=== PATIENT | female | born 1965 | race Caucasian/White ===

== ENCOUNTER 2019-07-15 12:21 | Outpatient (CLI) | payer OTHER, SELFPAY ==
--- NOTE | ~2019-07-15 | MMUS_ITS ---
EXAMINATION: MM diagnostic marah RT w iadee, US breast RT limited HISTORY: Follow-up right breast masses TECHNIQUE: Additional 3-D tomosynthesis images of the right breast were performed and synthetic 2-D i mages were generated. CAD analysis was submitted and interpreted. High resolution right breast ultras ound was performed. COMPARISON: Comparison to multiple prior studies sequentially, with oldest reviewed study dated 01/2015. FINDINGS: MAMMOGRAPHIC FINDINGS: The breasts are heterogenously dense, which may obscure small masses. There are no suspicious masses, calcifications or architectural distortion in the right breast to suggest malignancy. ULTRASOUND: Right breast ultrasound: At 9:00 near the nipple, there is a complicated cyst measuring 5.5 mm greatest dimension. At 11:00 ne ar the nipple there is a 4 mm cyst. At 12:00 near the nipple there is an oval circumscribed hypoechoi c mass measuring 7 x 3 x 3 mm with low-level internal echoes, parallel orientation, no internal vascu larity or posterior features. At 12:00 near the nipple there is a 4 mm complicated cyst. IMPRESSION: 1. Probable benign right breast masses. 2. Recommend 6 month follow-up bilateral mammogram and right breast ultrasound BI-RADS category 3, probably benign findings. Reviewed, dictated and finalized at location A. RNAL GRINDER TOOL IMPRESSION: 1. Probable benign right breast masses. 2. Recommend 6 month follow-up bilateral mammogram and right breast ultrasound BI-RADS category 3, probably benign findings.
== END 2019-07-15 12:22 | disposition home or self-care (01) ==
PROVIDERS: PCP Family Medicine; Visit Provider Obstetrics & Gynecology
DX: R92.8 Other abnormal and inconclusive findings on diagnostic imaging of breast (principal)
CPT/HCPCS: 76642; 77061; 77065; G0279

== ENCOUNTER 2020-01-31 11:05 | Outpatient (CLI) | payer OTHER, SELFPAY ==
--- NOTE | ~2020-01-31 | MMUS_ITS ---
EXAMINATION: MM diagnostic marah BI w aidee, US breast RT limited HISTORY: Six-month follow-up of probable benign right breast masses TECHNIQUE: ML, MLO, CC 3-D tomosynthesis images of the breasts were performed and synthetic 2-D image s were generated. CAD analysis was submitted and interpreted. High resolution repeat limited right br east ultrasound was performed. COMPARISON: 07/15/2019 diagnostic right digital mammogram and limited right breast ultrasound 12/24/2018 diagnostic right digital mammogram 12/16/2018 bilateral digital screening mammogram BREAST PARENCHYMAL COMPOSITION: The breasts are heterogeneously dense, which may obscure small masses . FINDINGS: MAMMOGRAPHIC FINDINGS: No interval suspicious mass or architectural distortion, malignant calcification, skin thickening or retraction or significant new or developing density of either breast is evident. Occasional punctate benign microcalcifications are noted. ULTRASOUND: Repeat upper outer quadrant right breast ultrasound imaging reveals a 5.7 x 3.9 mm cyst with through transmission posterior enhancement at 9:00 near the nipple and another 3 x 4.1 mm sonolucency consist ent with cyst at 11:00 near nipple. No suspicious solid lesion or shadowing is detected. IMPRESSION: 1. No mammographic evidence of malignancy 2. Routine mammographic screening is recommended. BI-RADS Category 2: Benign finding(s). Reviewed, dictated and finalized at location A. IMPRESSION: 1. No mammographic evidence of malignancy 2. Routine mammographic screening is recommended. BI-RADS Category 2: Benign finding(s).
== END 2020-01-31 11:06 | disposition home or self-care (01) ==
LOC: ANHIMG 11:07
PROVIDERS: PCP Family Medicine; Visit Provider Obstetrics & Gynecology
DX: R92.8 Other abnormal and inconclusive findings on diagnostic imaging of breast (principal)
CPT/HCPCS: 76642; 77062; 77066; G0279

== ENCOUNTER 2020-07-03 11:28 | Outpatient (CLI) | payer OTHER, SELFPAY ==
--- NOTE | ~2020-07-03 | MMUS_ITS ---
EXAMINATION: MM diagnostic marah LT w aidee, US breast LT limited HISTORY: Pain in the upper outer quadrant of the left breast TECHNIQUE: Craniocaudal, mediolateral, and mediolateral oblique 3-D tomosynthesis images of the left breast were performed and synthetic 2-D images were generated. CAD analysis was submitted and interpr eted. High resolution limited left breast ultrasound was performed. COMPARISON: 01/31/2020, 12/16/2018, 12/29/2017 BREAST PARENCHYMAL COMPOSITION: The breasts are heterogeneously dense, which may obscure small masses . FINDINGS: MAMMOGRAPHIC FINDINGS: There is an approximately 3.8 x 2.1 cm irregular equal density mass with indistinct and spiculated ma rgins in the posterior third of the upper outer quadrant of the breast at the 1:00 location 8 cm from the nipple. There is skin thickening of the left breast. Enlarged left axillary lymph nodes measure up to 1.3 cm. ULTRASOUND: There is an approximately 4.0 x 2.0 cm hypoechoic irregular mass with posterior acoustic shadowing at the 12:00 location 5 cm from the nipple. There are multiple enlarged left axillary lymph nodes, the largest of which measures 2.9 x 2.4 cm. IMPRESSION: 1. Suspicious left breast mass and left axillary lymphadenopathy. 2. Ultrasound-guided breast and axillary lymph node biopsy is recommended. BI-RADS category 5, highly suggestive of malignancy. Reviewed, dictated and finalized at location A. EX CLERK IMPRESSION: 1. Suspicious left breast mass and left axillary lymphadenopathy. 2. Ultrasound-guided breast and axillary lymph node biopsy is recommended. BI-RADS category 5, highly suggestive of malignancy.
== END 2020-07-03 11:29 | disposition home or self-care (01) ==
LOC: ANHIMG 11:32
PROVIDERS: PCP Family Medicine; Visit Provider Family Medicine
DX: N64.4 Mastodynia (principal); R92.8 Other abnormal and inconclusive findings on diagnostic imaging of breast
CPT/HCPCS: 76642; 77061; 77065; G0279

== ENCOUNTER 2020-07-13 10:35 | Outpatient (CLI) | payer OTHER, SELFPAY ==
--- NOTE | ~2020-07-13 | MMUS_ITS ---
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 Additional enlarged left axillary lymph nodes were visualized by ultrasound. Ultrasound-guided core biopsy is requested to evaluate for daniel gnancy. TECHNIQUE AND FINDINGS: The risks and potential benefits of the procedure were discussed with the patient, and written inform ed consent was obtained. After sterile preparation of the left breast and axilla, 1% lidocaine was u tilized for local anesthesia. 1% lidocaine with epinephrine was used for deep anesthesia. A 10G vacuum-assisted biopsy gun needle was advanced through to the outer edge of the region of inter est from a superior approach utilizing sonographic guidance. A total of 4 tissue core samples were o btained through the lesion. An Inrad tissue marker clip was then placed at the biopsy site. Hemostas is was achieved. A 14-gauge biopsy needle was used for left axillary lymph node biopsy. 4 specimens w ere obtained. The patient tolerated procedure well and there was no evidence of immediate complication. The patien t was given verbal instructions partly is from the department. Left breast mammograms to document ti ssue marker clip placement. The tissue samples were submitted to surgical pathology for histologic an alysis. IMPRESSION: 1. Successful ultrasound-guided vacuum-assisted biopsy of left breast mass and left axillary lymph n odes with tissue marker placement at the breast biopsy site. Please refer to pathology report for his tologic analysis. Reviewed, dictated and finalized at location A. HOUSE TRAFFIC SUPERVISOR IMPRESSION: 1. Successful ultrasound-guided vacuum-assisted biopsy of left breast mass and left axillary lymph nodes with tissue marker placement at the breast biopsy si te. Please refer to pathology report for histologic analysis. IMPRESSION: 1. Successful ultrasound-guided vacuum-assisted biopsy of left breast mass and left axillary lymph nodes with tissue marker placement at the breast biopsy si te. Please refer to pathology report for histologic analysis.
== END 2020-07-13 10:36 | disposition home or self-care (01) ==
PROVIDERS: PCP Family Medicine; Visit Provider Surgery
DX: R92.8 Other abnormal and inconclusive findings on diagnostic imaging of breast (principal); D05.12 Intraductal carcinoma in situ of left breast
CPT/HCPCS: 19083; 38505; 76942; 88305; 88342; A4648

== ENCOUNTER → 2020-07-19 02:41 | Outpatient (CLI) | payer OTHER, SELFPAY ==
[2020-07-19 17:20] LABS: SARS-CoV-2 RNA PCR Negative
== END ==
PROVIDERS: PCP Family Medicine; Visit Provider Surgery
DX: Z01.812 Encounter for preprocedural laboratory examination (principal); Z20.822 Contact with and (suspected) exposure to COVID-19
CPT/HCPCS: C9803; U0003; U0005

== ENCOUNTER 2020-07-20 00:58 | Day surgery (SDC) | payer OTHER, SELFPAY ==
[2020-07-18 16:48] VITALS: BMI 29.9
--- NOTE | 2020-07-19 13:24 | P.PNAN_ITS ---
Anes - Initial Pre Proc Eval Procedure: Operation Date: 07/20/20 14:00 Proposed Procedures p Insertion Carlos Cath - Luis Alvarez MD Date/Time: 07/19/20 13:24 Surgeon: Luis Alvarez MD Pre Op Diagnosis: Invasive Ductal CA Left Breast Patient Data Age: 55 Gender: F Height: 1.65 m Weight: 81.65 kg Allergies Allergy/AdvReac Type Severity Reaction Status Date / Time moxifloxacin Allergy Unknown Unknown Verified 07/20/20 13:01 Penicillins Allergy Unknown Swelling Verified 07/20/20 13:01 Home Medications Medication Instructions Recorded Confirmed Type fexofenadine [Alesha Allergy] 60 mg PO DAILY 07/18/20 07/20/20 History fluticasone propionate [Flonase] 1 spray INTRANASAL DAILY 07/18/20 07/20/20 History Patient hx anesthesia problems: none Family hx anesthesia problems: none PMFSH Past Medical History Medical History (Updated 07/19/20 @ 13:24 by Norris Chowdhury MD) BMI 30.0-30.9,adult 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 Questions were solicited and answers provided to the satisfaction of the patient/family/POA.
--- NOTE | ~2020-07-20 | XR_ITS ---
EXAMINATION: XR fl guide central line place EXAM DATE: 07/20/2020 15:04 INDICATION: Carlos catheter insertion. TECHNIQUE: Fluoroscopy used during XR fl guide central line place performed by Dr. Luis Alvarez MD. The DAP for this procedure was 0.0837 mGym2. FINDINGS: Right-sided portacatheter was placed, tip projects over cavoatrial junction. Correlate wi th procedure note. IMPRESSION: Fluoroscopy used during portacatheter insertion. Reviewed, dictated and finalized at location B. ING MACHINE OPERATOR
--- NOTE | ~2020-07-20 | XR_ITS ---
EXAMINATION: XR chest port-a-cath/central INDICATION: Port-A-Cath insertion TECHNIQUE: Portable AP chest at 1521 hours COMPARISON: None available FINDINGS: A right internal jugular Port-A-Cath has been inserted which ends with its tip in the dista l superior vena cava. There is no pleural effusion or pneumothorax. The lungs are free of acute opaci ties. The heart size is normal. IMPRESSION: 1. Right internal jugular Port-A-Cath ending with its tip in the distal superior vena cava. No acute cardiopulmonary abnormality. Reviewed, dictated and finalized at location A. NICAL SUPPORT ENGINEER IMPRESSION: 1. Right internal jugular Port-A-Cath ending with its tip in the distal superio r vena cava. No acute cardiopulmonary abnormality.
[2020-07-20 12:56] VITALS: BP 120/78; PULSE 84; RESP 20; TEMP 37.7; O2SAT 99
[2020-07-20] MEDS: ACETAMINOPHEN 500 MG TABLET 1000 MG PO (13:08)
[2020-07-20] MEDS: LACTATED RINGERS 1,000 ML 30 ML IV CONT (13:12)
--- NOTE | 2020-07-20 13:28 | SUR.PREOP ---
patient updated on potential surgery delay. pt denies any current needs.
--- NOTE | 2020-07-20 13:53 | WPDHPUPDATE1 ---
History and Physical Update Update Date/Time: 07/20/20 13:53 History and Physical has been reviewed, including an updated exam of the patient. There are NO changes in the patient's condition. Risks, benefits, and alternatives US guided placement of a Carlos-cath have been discussed and questions answered. Patient agrees to proceed with procedure.
[2020-07-20] MEDS: ceFAZolin 2 GM/D5W 50 ML 2 GM/50 ML BAG IVPB (14:30)
[2020-07-20] MEDS: HEPARIN SODIUM 5,000 UNITS/ML VIAL 5000 UNITS IRRIGATION (14:48)
[2020-07-20] MEDS: BUPIVACAINE/EPINEPHRINE 0.5% 30 ML VIAL 20 ML INFILTRATE (14:48)
--- NOTE | 2020-07-20 15:07 | PM.PROC ---
Procedure Note - Detailed Date of procedure: 07/20/20 Pre-op diagnosis: Invasive Ductal CA Left Breast Post-op diagnosis: same Procedure performed: Ultrasound-guided placement of Port-A-Cath Description of procedure: Patient was seen and marked in the pre-op area prior to coming to the OR. Patient was brought to the operating room. He was placed supine on the operating table and general IV sedation was induced. The nurse precipitation equipment tender provided oxygen and IV sedation. Patient's head was carefully turned to the left side while in the supine position and the patient's entire neck and anterior chest on both sides was prepped and draped in the usual sterile fashion. Following this the appropriate time-out was completed confirming procedure and patient. We confirmed that all the needed equipment was present in the room. Following this the ultrasound probe was draped into the field and using the probe we carefully identified the carotid artery and jugular vein on the right neck. I marked the skin directly over the Rt. internal jugular vein. We then saved an image of the Rt. neck vascular anatomy to the chart. Following this, using the continuous ultrasound guidance, a Cook needle was placed through the skin into this vein after making a 0.5 cm incision with an 11 blade knife. I then was able to draw back good dark blood. Once this was completed a guidewire using a J-tip was advanced through the needle and then the needle and the guidewire cover were withdrawn. C-arm fluoroscopy was used to confirm that the guidewire was nicely in the venous system. Once this was confirmed with the C - arm I preceded on by making the pocket for the port on the patient's anterior right chest approximately 3 centimeters below the clavicle overlying the chest wall. Local anesthetic was infiltrated into the skin where there was a transverse incision marked out. Incision was made and we made a pocket inferior to the incision with just a little dissection superior. The low-profile port was tried in the pocket and seemed to fit well. Following this the catheter which had been placed on a tunneling device was tunneled from the port site on the anterior right chest up to the right neck where a small incision had been made with an #11 blade knife. Then the catheter was pulled through so that we would have 15 centimeters to put into the central venous system once the dilation took place. Following this we placed the dilator and sheath over the guidewire in the jugular vein and carefully dilated the tract into the central venous system. The guidewire and dilator were then removed, carefully covering the end of the sheath to prevent air embolus. The end of the catheter which had been cut off straight across and the tip checked was then inserted into the sheath and into the neck. I then carefully pulled the 2 arms of the tear-away sheath away as the safety admin assistant held the catheter in position with a DeBakey forceps. Following this we checked the position of the catheter with C-arm fluoroscopy confirming that the tip seemed to be in the distal superior vena cava near the junction with the right atrium. I felt that it was in good position and so the rest of the catheter was pulled down toward the feet into the port site. We then measured to the appropriate position to cut the catheter to attach it to the port stem. Then the connector sealing device for the catheter port was placed onto the catheter and then the catheter cut to the appropriate length and inserted onto the stem of the port. Then the connector was advanced onto the stem over the catheter sealing it to the port. A single 3- 0 Prolene suture was also used during this to suture the connector to the port and to the underlying musculature. Following this at one other site the port was sutured to the underlying musculature with the 3-0 Proline. Both prior to connecting the catheter to the port and then using a straight Baires needle following this
[2020-07-20 15:11] VITALS: BP 121/65; PULSE 84; RESP 15; O2SAT 95
[2020-07-20 15:35] VITALS: BP 124/70; PULSE 72; RESP 20
--- NOTE | 2020-07-20 15:40 | SUR.PHASEII ---
1540 - dr. doe in room talking with pt
[2020-07-20 16:05] VITALS: BP 105/66; PULSE 65; RESP 20
[2020-07-20 16:35] VITALS: BP 115/65; PULSE 65; RESP 20
== END 2020-07-20 16:45 | disposition home or self-care (01) ==
PROVIDERS: PCP Family Medicine; Visit Provider Surgery
PROC: (CPT 36561; principal; 2020-07-20 14:00)
DX: C50.912 Malignant neoplasm of unspecified site of left female breast (principal); C77.3 Secondary and unspecified malignant neoplasm of axilla and upper limb lymph nodes; E66.9 Obesity, unspecified; Z68.29 Body mass index [BMI] 29.0-29.9, adult
CPT/HCPCS: 36561; 76937; 77001; A9270; C1788; J0690; J1200; J1644; J2250; J2405; J2704; J3010; J7030; J7120

== ENCOUNTER 2021-10-05 00:52 | Day surgery (SDC) | payer OTHER, SELFPAY ==
[2021-09-21 15:31] VITALS: BMI 32.1
[2021-10-05 07:45] VITALS: BP 118/86; PULSE 92; RESP 16; TEMP 36.3; O2SAT 100; BMI 31.6
--- NOTE | 2021-10-05 08:03 | PM.IMHP ---
H&P: HPI History of Present Illness Date/Time: 10/05/21 08:03 Chief Complaint: Neoplasia screening. Narrative: This is a 56-year-old white female patient presents for screening colonoscopy. Patient has a history of colon polyps 5 years ago. Patient presents today for follow-up colonoscopy. Patient reports that her current weight appetite and bowel movements are normal. She denies abdominal pain. She has had no bleeding. Family history is noncontributory. Patient does have a past history of left breast cancer. Review of Systems Review of Systems: Review of systems noncontributory. 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 Gender identity (if verbalized by the patient): Female Spiritual care concerns: No Meds Home Medications and Allergies Home Medications Medication Instructions Recorded Confirmed Type fluticasone propionate 50 1 spray intranasal DAILY 07/18/20 10/05/21 History mcg/actuation nasal spray,suspension montelukast 10 mg tablet 10 mg PO QPM #90 tabs 08/29/21 10/05/21 Rx duloxetine 30 mg capsule,delayed 30 mg PO DAILY 09/04/21 10/05/21 History release fexofenadine 180 mg tablet 180 mg PO DAILY 09/04/21 10/05/21 History (Allergy Relief (fexofenadine)) Allergies Allergy/AdvReac Type Severity Reaction Status Date / Time Penicillins Allergy Unknown Swelling Verified 10/05/21 07:49 Vital Signs Vital Signs - 24 hr 10/05/21 07:45 Temperature 97.4 F L Pulse Rate 92 Respiratory Rate 16 Blood Pressure 118/86 Pulse Oximetry 100 Oxygen Delivery Room Air Exam Narrative: Physical exam reveals patient to be alert. Vital signs stable. HEENT exam is unremarkable. Patient is anicteric. Lungs are clear to auscultation and percussion. Lungs are clear to auscultation and percussion. Heart is without murmur or extra sounds. Abdominal exam bowel sounds are present soft nontender with no organomegaly. Digital external rectal exam is normal. Assessment and Plan Assessment and plan (1) History of colon polyps: Code(s): Z86.010 - Personal history of colonic polyps Status: Acute Assessment and Plan: Patient has a prior history of colon polyps 5 years ago. Patient presents today for neoplasia screening colonoscopy.
[2021-10-05] MEDS: LACTATED RINGERS 1,000 ML 150 ML IV CONT (08:07)
--- NOTE | 2021-10-05 08:33 | WPDANESEPPF ---
Anes - Initial Pre Proc Eval Procedure: Operation Date: 10/05/21 09:00 Proposed Procedures p Screening Colonoscopy - Syd Morrow MD Date/Time: 10/05/21 08:33 Surgeon: Syd Morrow MD Pre Op Diagnosis: hx of colon polyps Patient Data Age: 56 Gender: F Height: 1.65 m Weight: 86.4 kg Last Vital Signs Temp 97.4 F L 10/05/21 07:45 Pulse 92 10/05/21 07:45 Resp 16 10/05/21 07:45 BP 118/86 10/05/21 07:45 Pulse Ox 100 10/05/21 07:45 O2 Del Method Room Air 10/05/21 07:45 Allergies Allergy/AdvReac Type Severity Reaction Status Date / Time Penicillins Allergy Unknown Swelling Verified 10/05/21 07:49 Home Medications Medication Instructions Recorded Confirmed Type fluticasone propionate 50 1 spray intranasal DAILY 07/18/20 10/05/21 History mcg/actuation nasal spray,suspension montelukast 10 mg tablet 10 mg PO QPM #90 tabs 08/29/21 10/05/21 Rx duloxetine 30 mg capsule,delayed 30 mg PO DAILY 09/04/21 10/05/21 History release fexofenadine 180 mg tablet 180 mg PO DAILY 09/04/21 10/05/21 History (Allergy Relief (fexofenadine)) Patient hx anesthesia problems: none Family hx anesthesia problems: none Results Review: All pre-operative results and documents have been reviewed as part of the pre-operative evaluation. 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 Informed Consent: The patient's anesthetic plan and its attendant risks and benefits were discussed with the patient/family/POA. Questions were solicited and answers provided to the satisfaction of the patient/family/POA.
[2021-10-05 09:00] VITALS: BP 119/71; PULSE 81; RESP 19; O2SAT 96
[2021-10-05 09:10] VITALS: BP 107/64; PULSE 73; RESP 15; O2SAT 99
[2021-10-05 09:20] VITALS: BP 118/71; PULSE 76; RESP 15; O2SAT 99
== END 2021-10-05 09:29 | disposition home or self-care (01) ==
PROVIDERS: PCP Family Medicine; Visit Provider Internal Medicine Gastroenterology
PROC: 0DJD8ZZ Inspection of Lower Intestinal Tract, Via Natural or Artificial Opening Endoscopic (ICD-10-PCS; CPT 45378; principal; 2021-10-05 09:00)
DX: Z12.11 Encounter for screening for malignant neoplasm of colon (principal); Z86.010 Personal history of colon polyps; K57.30 Diverticulosis of large intestine without perforation or abscess without bleeding; K64.8 Other hemorrhoids; C77.3 Secondary and unspecified malignant neoplasm of axilla and upper limb lymph nodes; Z85.3 Personal history of malignant neoplasm of breast; R73.03 Prediabetes; E05.90 Thyrotoxicosis, unspecified without thyrotoxic crisis or storm
CPT/HCPCS: 45378; J2704; J7120

== ENCOUNTER 2021-12-03 14:20 | Outpatient (CLI) | payer OTHER, SELFPAY ==
--- NOTE | ~2021-12-03 | XR_ITS ---
EXAM: XR lumbar spine 2-3V DATE: 12/03/2021 14:37 HISTORY: M54.32 - Sciatica, left side . COMPARISON: None available. FINDINGS: 5 nonrib-bearing lumbar-type vertebral bodies. Pedicles intact. Normal vertebral body alig nment. Vertebral body heights preserved. Multilevel mild disc space narrowing and marginal osteophyto sis. Normal facets and posterior elements. No fracture or dislocation. IMPRESSION: Multilevel mild degenerative disc disease. Reviewed, dictated and finalized at location K.
== END 2021-12-03 14:21 | disposition home or self-care (01) ==
LOC: ANHIMG 14:24
PROVIDERS: PCP Family Medicine; Visit Provider Family Medicine
DX: M54.32 Sciatica, left side (principal); M51.36 Other intervertebral disc degeneration, lumbar region
CPT/HCPCS: 72100

== ENCOUNTER 2022-01-01 15:15 | Outpatient (CLI) | payer OTHER, SELFPAY ==
--- NOTE | ~2022-01-01 | XR_ITS ---
XR chest 2V 01/01/2022 15:39 Indication: Shortness of breath for 2 weeks Procedure: 2 view chest Comparison: 07/20/2020 Findings: Portacatheter tip in the SVC. Heart size normal. Mild pectus excavatum. No focal air space disease, pulmonary edema, pleural effusion or suspected pneumothorax. Impression: 1: No acute cardiopulmonary disease. Reviewed, dictated and finalized at location A. Impression: 1: No acute cardiopulmonary disease.
[2022-01-01 16:33] LABS: Basophils Percent Auto 0.6 % (0.2-1.2); Eosinophils Absolute Auto 0.1 K/mm3 (0-0.3); Eosinophils Percent Auto 1.7 % (0-4.4); Hematocrit 43.6 % (37.0-47.0); Hemoglobin 13.8 g/dL (12.0-15.0); Immature Granulocyte Percent A 1.9 % (0-0.5); Immature Platelet Fraction Pct 3.8 % (0.9-11.2); Lymphocytes Absolute Auto 0.73 K/mm3 (0.9-3.2); Lymphocytes Percent Auto 13.8 % (18.3-44.2); Mean Corpuscular HGB Conc 31.7 g/dl (32-36); Mean Corpuscular Hemoglobin 30.8 pg (26-34); Mean Corpuscular Volume 97.3 fl (80-100); Mean Platelet Volume 10.2 fl (7.4-10.4); Monocytes Absolute Auto 0.6 K/mm3 (0.1-0.6); Monocytes Percent Auto 11.7 % (2.6-8.5); Neutrophils Absolute Auto 3.7 K/mm3 (1.3-6.7); Neutrophils Percent Auto 70.3 % (45.5-73.1); Platelet Count Result 133 k/mm3 (150-375); Red Blood Count 4.48 M/mm3 (4.2-5.4); Red Cell Distribution Width 15.9 % (11.5-14.5); White Blood Count 5.3 K/mm3 (4.5-10.0)
[2022-01-01 16:43] LABS: Alanine Aminotransferase 88 U/L (6-35); Albumin Level 4.1 g/dL (3.5-5.1); Alkaline Phosphatase 212 U/L (38-126); Anion Gap 10 mmol/L (8-16); Aspartate Amino Transferase 126 U/L (14-36); Bilirubin,Total 0.9 mg/dL (0.2-1.3); Blood Urea Nitrogen 12 mg/dL (7-17); Calcium 9.5 mg/dL (8.4-10.2); Carbon Dioxide 25 mmol/L (22-30); Chloride 104 mmol/L (98-107); Estimated Glomerular Filt Rate > 60; Glucose 142 mg/dL (65-110); Potassium 4.5 mmol/L (3.4-5.0); Sodium 139 mmol/L (137-145)
== END 2022-01-01 15:16 | disposition home or self-care (01) ==
PROVIDERS: PCP Family Medicine; Visit Provider Family Medicine
DX: R06.09 Other forms of dyspnea (principal); I10 Essential (primary) hypertension
CPT/HCPCS: 36415; 71046; 80053; 85025; 85055

== ENCOUNTER 2022-01-02 11:55 | Inpatient (IN) | payer OTHER, SELFPAY ==
[2022-01-02] VITALS (14 sets, daily range): BP systolic 115–153; BP diastolic 68–98; PULSE 83–114; RESP 14–22; TEMP 36.2–37.3; O2SAT 88–100; BMI 31.6
--- NOTE | ~2022-01-02 | US_ITS ---
EXAMINATION: US venous doppler [facility] DATE: 01/03/2022 11:51 INDICATION: Shortness of breath TECHNIQUE: Sen scale images without and with compression and Doppler images of the bilateral lower e xtremity veins were obtained. COMPARISON: None FINDINGS: The right common femoral vein, profunda femoral vein, femoral vein, popliteal vein, peroneal trunk, p osterior tibial veins, and greater saphenous vein are patent. The left common femoral vein, profunda femoral vein, femoral vein, popliteal vein, peroneal trunk, po sterior tibial veins, and greater saphenous vein are patent. IMPRESSION: 1. Patent bilateral lower extremity veins. No evidence of deep venous thrombosis. Reviewed, dictated and finalized at location B. IMPRESSION: 1. Patent bilateral lower extremity veins. No evidence of deep venous thrombosi s.
--- NOTE | ~2022-01-02 | XR_ITS ---
EXAMINATION: XR chest 2V DATE: 01/02/2022 12:22 INDICATION: Chest pain TECHNIQUE: PA and lateral views of the chest are obtained. COMPARISON: 01/01/2022 FINDINGS: A right internal jugular Port-A-Cath ends with its tip in the distal superior vena cava. Th e lungs are free of acute opacities. No pleural effusion or pneumothorax. The cardiomediastinal silho uette is normal. There is mild thoracic spondylosis. There are changes of left mastectomy. IMPRESSION: 1. No acute cardiopulmonary abnormality. Reviewed, dictated and finalized at location B.
--- NOTE | ~2022-01-02 | CT_ITS ---
EXAMINATION: CTA chest PE protocol DATE: 01/02/2022 13:38 INDICATION: Chest pain and shortness of breath, history of breast cancer TECHNIQUE: Computed tomography angiography (CTA) of the chest was performed with 100 mL Omnipaque-350 intravenous contrast timed to evaluate the pulmonary arteries. Coronal maximum intensity projection 3D-reconstructions were created by the technologist. The dose-length product (DLP) was 329.08 mGy-cm. Automated exposure control and iterative reconstruction technique were employed. COMPARISON: None. FINDINGS: The pulmonary arteries are well-opacified. No pulmonary embolism is identified. There is pa tchy atelectasis of the lungs. No pleural effusion or pneumothorax. Changes of left mastectomy are no collette. No pathologically enlarged thoracic lymph nodes are identified. The heart size is normal. There appears to be mild wall thickening of the gallbladder. There is mild thoracic spondylosis. IMPRESSION: 1. No pulmonary embolus. 2. Mild atelectasis. 3. Possible wall thickening of the gallbladder. Correlate for right upper quadrant tenderness. Reviewed, dictated and finalized at location B. IMPRESSION: 1. No pulmonary embolus. 2. Mild atelectasis. 3. Possible wall thickening of the gallbladder. Correlate for right upper quadr ant tenderness.
--- NOTE | ~2022-01-02 | XR_ITS ---
EXAMINATION: XR chest 1V INDICATION: Shortness of breath TECHNIQUE: AP view of the chest is obtained. COMPARISON: 01/02/2022 FINDINGS: A right internal jugular Port-A-Cath ends with its tip in the distal superior vena cava. Th e lungs are free of acute opacities. The cardiomediastinal silhouette is normal. No pleural effusion or pneumothorax. Changes of left mastectomy are noted. IMPRESSION: 1. No Reviewed, dictated and finalized at location B. IMPRESSION: 1. No
--- NOTE | ~2022-01-02 | US_ITS ---
EXAMINATION: US biopsy liver DATE: 01/04/2022 10:24 INDICATION: Liver mass. TECHNIQUE: The procedure including the risks, benefits, and alternatives was discussed with the patie nt. Risks discussed included bleeding and infection. The patient understood the risks and agreed to p roceed. The skin overlying the liver was prepped and draped in usual sterile fashion. Anesthetic was administered with 1% lidocaine subcutaneously. An 18 gauge core biopsy needle was then used to obta in 3 core biopsy specimens under continuous sonographic guidance. The entry site was cleaned and dres sed. There were no immediate complications. FINDINGS: Ultrasound images demonstrate the needle in a 3.2 cm hypoechoic mass in right hepatic lobe. IMPRESSION: 1. Ultrasound-guided core needle biopsy of a liver mass. Reviewed, dictated and finalized at location A.
--- NOTE | ~2022-01-02 | CT_ITS ---
EXAMINATION: CTA chest PE protocol DATE: 01/05/2022 16:55 INDICATION: shortness of breath TECHNIQUE: Computed tomography angiography (CTA) of the chest was performed with 100 mL Omnipaque-350 intravenous contrast timed to evaluate the pulmonary arteries. Coronal maximum intensity projection 3D-reconstructions were created by the technologist. The dose-length product (DLP) was 434.64 mGy-cm. Automated exposure control and iterative reconstruction technique were employed. COMPARISON: 01/02/2022. FINDINGS: Lung parenchyma and airways: Mild left anterior peripheral scarring and bibasilar atelectasis. Pleura: Unremarkable. Thoracic inlet, axillae and chest wall: Left mastectomy. Likely postsurgical change in the left axill a. Thoracic aorta: Normal. Mediastinum: Small hiatal hernia. Heart and pericardium: Mild cardiomegaly. Coronary artery calcifications: Absent. Upper abdomen: 11 mm splenic artery aneurysm. Possible persistent thickening. Bones: No acute osseous finding. Pulmonary arteries: Study quality: Adequate. No pulmonary emboli detected. IMPRESSION: No CT evidence of acute pulmonary embolus. Possible persistent gallbladder wall thickening, correlate for right upper quadrant tenderness. 11 mm splenic artery aneurysm. Reviewed, dictated and finalized at location K. IMPRESSION: No CT evidence of acute pulmonary embolus. Possible persistent gallbladder wall thickening, correlate for right upper quadrant tenderness. 11 mm splenic arter y aneurysm.
--- NOTE | ~2022-01-02 | CT_ITS ---
EXAMINATION:CT chest high resolution wo nv DATE: 01/07/2022 10:09 INDICATION: Shortness of breath. TECHNIQUE: Computed tomography (CT) of the chest was performed without intravenous contrast. Automate d exposure control and iterative reconstruction technique were employed. The dose-length product (DLP ) was 219.07 mGy-cm. COMPARISON: Chest CT 01/05/2022 FINDINGS: There are peripheral airspace and groundglass opacities in anterior left lung, consistent w ith radiation fibrosis. There is mild atelectasis bilaterally. There is smooth septal thickening in t he lungs, consistent mild pulmonary edema. No pleural effusion. There is a right internal jugular por t with tip at superior cavoatrial junction. The heart size is normal. No pericardial effusion. There are changes of left mastectomy. There are numerous masses in the liver. There is mild thoracic spondy losis. IMPRESSION: 1. Mild pulmonary edema. 2. 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 2. Liver masses, consistent with metastatic disease. Reviewed, dictated and finalized at location A.
--- NOTE | ~2022-01-02 | US_ITS ---
EXAMINATION: US abdomen limited DATE: 01/03/2022 11:53 INDICATION: Right upper quadrant pain TECHNIQUE: Multiple grayscale and Doppler ultrasound images of the abdomen were obtained. COMPARISON: CT from yesterday FINDINGS: The pancreas is not well demonstrated. There are multiple hypoechoic masses of the liver, t he largest of which measures up to 8.5 cm. No surface nodularity. Normal hepatopetal flow in the main portal vein. The gallbladder is normal with no abnormal wall thickening, pericholecystic fluid or st ones. The dilated common bile duct measures 9 mm. There was no sonographic Borja sign. IMPRESSION: 1. Multiple liver masses which could reflect metastatic disease given history of breast cancer. Furth er evaluation by MRI without and with contrast is recommended. 2. Dilated common bile duct of unclear etiology. Finding can be simultaneously evaluated by MRI. Reviewed, dictated and finalized at location B. IMPRESSION: 1. Multiple liver masses which could reflect metastatic disease given history o f breast cancer. Further evaluation by MRI without and with contrast is recomme nded. 2. Dilated common bile duct of unclear etiology. Finding can be simultaneously evaluated by MRI.
--- NOTE | ~2022-01-02 | MR_ITS ---
EXAMINATION: MR MRCP wo/w con/w 3D wo ind DATE: 01/04/2022 07:20 INDICATION: Liver masses. TECHNIQUE: Magnetic resonance imaging (MRI) of the abdomen was performed without intravenous contrast . Sequences included coronal T2-weighted FS FSE, coronal T2-weighted FSE, axial T1-weighted LAVA, cor onal FS FIESTA, axial dual-echo T1-weighted SPGR, coronal lava-FLEX, sagittal T2-weighted FSE, axial T2-weighted FSE, and axial DWI. Thick-slab T2-weighted FSE images were obtained for magnetic resonanc e cholangiopancreatography (MRCP). Maximum intensity projection 3-D reconstructions of the volumetric data were created by the technologist. Postcontrast sequences included coronal LAVA-flex and time co urse of axial T1-weighted LAVA. COMPARISON: Abdomen ultrasound 01/03/2022 FINDINGS: ABDOMEN MRI: There are changes of left mastectomy. There are greater than 10 masses in the liver, man y which are confluent. The largest mass measures 11.7 cm in right hepatic lobe. The gallbladder is no rmal in size. The spleen, pancreas, adrenal glands, and right kidney are normal. There is a 5 mm cyst in left kidney. There are no dilated loops of bowel. There is mild periportal lymphadenopathy. There is no free intraperitoneal fluid. There is heterogeneous bone marrow signal intensity and enhancemen t involving L2 vertebral body. ABDOMEN MRCP: The common duct is normal and measures 4 mm. IMPRESSION: 1. Liver masses and L2 vertebral body lesion, consistent with metastatic disease. The liver masses wo uld be amenable to ultrasound-guided core needle biopsy. Reviewed, dictated and finalized at location A. IMPRESSION: 1. Liver masses and L2 vertebral body lesion, consistent with metastatic diseas e. The liver masses would be amenable to ultrasound-guided core needle biopsy.
--- NOTE | 2022-01-02 11:55 | ECG_ITS ---
Measurements Intervals Edwards Rate: 91 P: -1 OK: 137 QRS: 0 QRSD: 76 T: 14 QT: 353 QTc: 435 Interpretive Statements SINUS RHYTHM NORMAL ECG NO PREVIOUS ECG AVAILABLE FOR COMPARISON Electronically Signed On 01-02-2022 16:12:10 CDT by Luis Antonio Caballero M.D.
--- NOTE | 2022-01-02 12:18 | ED.CHESTPAIN ---
HPI - Chest Pain General Chief Complaint: Chest Pain Stated Complaint: chest pain Time Seen by Provider: 01/02/22 12:09 Source: patient and family Mode of arrival: ambulatory Limitations: no limitations History of Present Illness HPI narrative: 56 years old white female presents with increased shortness of breath over the last 2 days. Patient reports shortness of breath for over 2 weeks, got worse over the last 2 days. Associated with chest pain that radiated to the neck and through the back. She reported history of recent travel, 14-hour drive 5 days ago, and history of left breast cancer, treated and no remission years ago History of COVID infection November 23, 2021. Patient is fully vaccinated and boosted once for COVID infection Oxygenation on room air was 88 on arrival to the emergency room Related Data Home Medications Medication Instructions Recorded Confirmed duloxetine 30 mg capsule,delayed 30 mg PO DAILY 09/04/21 12/03/21 release fexofenadine 180 mg tablet 180 mg PO DAILY PRN 11/05/21 12/03/21 (Allergy Relief (fexofenadine)) fluticasone propionate 50 1 spray intranasal DAILY PRN 11/05/21 12/03/21 mcg/actuation nasal spray,suspension montelukast 10 mg tablet 10 mg PO QPM PRN 11/05/21 12/03/21 Allergies Allergy/AdvReac Type Severity Reaction Status Date / Time Penicillins Allergy Unknown Swelling Verified 01/02/22 12:30 Review of Systems Review of Systems: All systems reviewed & are unremarkable except as noted in HPI and below PMFSH Past Medical History Medical History BMI 30.0-30.9,adult 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 Other Hypertension Social History Social History Smoking status: Never smoker Second hand tobacco smoke exposure: No Alcohol intake: current Alcohol use details: a few drinks per month Substance use: never Substance use type: does not use Additional occupation/education comments: [employer] Gender identity (if verbalized by the patient): Female Sexual Orientation (if Verbalized by the Patient): Straight or Heterosexual Spiritual care concerns: No Agree to blood products: Yes Exam Narrative: General appearance: Well-developed, well-nourished Skin: Normal color Head: Normocephalic, nontraumatic Eyes: Clear conjunctiva ENT: Oropharynx normal, ears normal, nose normal Neck: Supple, nontender Chest and respiratory: Airway patent, no respiratory distress, no accessory muscle use Heart: Regular rate/rhythm Abdomen: Soft, nontender, no organomegaly, quiet bowel sounds Vascular: Normal peripheral pulses, normal capillary refill. Musculoskeletal: Normal range of motion, nontender back Neurologic: Alert and oriented ?3, ROPING TENDER is normal as tested, no gross motor deficit Course Vital Signs Vital signs: Vital Signs Temperature 37.2
[2022-01-02 12:24] LABS: Basophils Percent Auto 0.5 % (0.2-1.2); Eosinophils Absolute Auto 0.1 K/mm3 (0-0.3); Eosinophils Percent Auto 1.6 % (0-4.4); Hematocrit 45.7 % (37.0-47.0); Hemoglobin 14.8 g/dL (12.0-15.0); Immature Granulocyte Absolute 0.13 K/mm3 (0.00-0.031); Immature Granulocyte Percent A 2.1 % (0-0.5); Immature Platelet Fraction Pct 4.5 % (0.9-11.2); Lymphocytes Absolute Auto 0.93 K/mm3 (0.9-3.2); Mean Corpuscular HGB Conc 32.4 g/dl (32-36); Mean Corpuscular Hemoglobin 31.2 pg (26-34); Mean Corpuscular Volume 96.2 fl (80-100); Mean Platelet Volume 10.2 fl (7.4-10.4); Monocytes Absolute Auto 0.7 K/mm3 (0.1-0.6); Monocytes Percent Auto 10.7 % (2.6-8.5); Neutrophils Absolute Auto 4.3 K/mm3 (1.3-6.7); Neutrophils Percent Auto 70.1 % (45.5-73.1); Platelet Count Result 130 k/mm3 (150-375); Red Blood Count 4.75 M/mm3 (4.2-5.4); Red Cell Distribution Width 16.5 % (11.5-14.5); White Blood Count 6.2 K/mm3 (4.5-10.0)
[2022-01-02 12:28] LABS: Alanine Aminotransferase 100 U/L (6-35); Albumin Level 4.5 g/dL (3.5-5.1); Alkaline Phosphatase 242 U/L (38-126); Anion Gap 11 mmol/L (8-16); Aspartate Amino Transferase 144 U/L (14-36); Bilirubin,Total 0.9 mg/dL (0.2-1.3); Blood Urea Nitrogen 11 mg/dL (7-17); Calcium 9.5 mg/dL (8.4-10.2); Carbon Dioxide 25 mmol/L (22-30); Chloride 104 mmol/L (98-107); Estimated Glomerular Filt Rate > 60; Glucose 129 mg/dL (65-110); Lipase 94 U/L (23-300); Potassium 3.6 mmol/L (3.4-5.0); Sodium 140 mmol/L (137-145)
[2022-01-02 12:29] LABS: INR 1.1; Prothrombin Time 13.8 Seconds (11.1-14.7)
[2022-01-02 12:30] LABS: Partial Thromboplastin Time 30.8 SECONDS (22.3-36.8)
[2022-01-02 12:39] LABS: Troponin I < 0.012 ng/mL (0.000-0.034)
--- NOTE | 2022-01-02 12:39 | PC.NURSE ---
pt unable to provide urine sample at this time and is declining straight cath.
[2022-01-02 12:52] LABS: NT Pro B Type Natriuretic Pept 225 pg/mL (5-100)
[2022-01-02 12:53] LABS: D Dimer 2.15 ug/mL (<0.48)
[2022-01-02 13:00] LABS: Alveolar/Arterial O2 Gradient 73.1 mmHg; Base Excess ABG 0.3 mEq/l (+/-2.0); Fractional Inspired Oxygen 30 %; Oxygen Content ABG 19.7 %vol (16.0-22.0); Oxygen Saturation ABG 98.1 % (95.0-100.0); Oxyhemoglobin 96.7 % THb (90.0-100.0); PCO2 ABG 31.9 mmHg (35.0-45.0); PO2 ABG 103.3 mmHg (80.0-100.0); PO2 FiO2 Ratio Arterial Blood 3.44 %; Total Hemoglobin 14.4 g/dL (12.0-18.0); pH ABG 7.476 (7.350-7.450)
[2022-01-02 13:02] LABS: Site Drawn RIGHT BRACHIAL
[2022-01-02 13:03] LABS: Device NASAL CANNULA; Liters per Minute 2.5 LPM
[2022-01-02 13:18] LABS: SARS-CoV-2 RNA PCR Positive
[2022-01-02 13:30] LABS: Appearance Urine Clear (Clear); Bilirubin Urine Negative (Negative); Color Urine Yellow (Yellow); Glucose Urine UA Negative (Negative); Ketones Urine Negative (Negative); Leukocyte Esterase Ur Negative LEU/UL (Negative); Nitrate Urine Negative (Negative); Protein Urine Negative (Negative); Specific Grav Ur 1.025 (1.001-1.035); Urobilinogen Urine 0.2 mg/dL (<2.0); pH Urine 5.5 (5.0-9.0)
[2022-01-02 13:35] LABS: Bacteria Urine 1+ /hpf; Mucus Urine Rare /lpf; RBC Urine 0-2 /hpf (0-2); Squamous Epithelial Cell Urine Occasional /hpf (Few); WBC Urine 0-3 /hpf
[2022-01-02 13:37] LABS: Add Urine Microscopic? YES; Blood Urine Trace-Intact (Negative)
[2022-01-02] MEDS: ENOXAPARIN 80 MG/0.8 ML SYRINGE 90 MG SUB-Q (13:45)
--- NOTE | 2022-01-02 15:14 | PM.IMHP ---
H&P: HPI History of Present Illness Date/Time: 01/02/22 15:14 Chief Complaint: Chest pain Narrative: patient is a 56-year-old female with a past medical history of breast cancer, allergies who presented to the ED with complaints of increased shortness of breath over the last 2 days. Patient stated that recently she had went to for a with her her grandkids between the and the . She stated prior before leaving she has a sciatica problem and had talked to her doctor who told her to take Aleve to try to relieve the pain. She said she was taking with meals a.m. and p.m. and that is when her shortness of breath really started. She stated the shortness of breath has been worse over the last couple days however she has had it for while but can not give a good timeline of when it all started. She denies having any cough or wheezes. When you ask her to describe her sciatic pain she says that it has pain that starts from the left and now she has a new pain comes from the right goes up to her neck. The pain on the right does started the level of the gallbladder. She also states that she feels like her shortness of breath is from COVID however she was positive in November which her new positive makes it look more rebound. She does not appear to have a new COVID infection. She also stated that she has pain with taking a deep breath. She has also gained weight roughly starting December of last year she has gained roughly 20 lb. She does have bad seasonal allergies which she takes singular, Alesha, Flonase during the spring and fall to get through that. Her last meal was wall folds, milk, coffee. Her last radiation treatment was June 15 of this year her last chemo treatment was sometime in December. As I was talking to her she stated that her pain starts under her right rib and does hurt when she takes a deep breath in. It is noted that her D-dimer is elevated however CTA was negative for PE. Her AST and ALT are also 144/100 alk-phos is elevated 242. BNP is elevated to 225. CTA shows no pulmonary embolus, mild atelectasis and possible wall thickening of the gallbladder. 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 Environmental allergies History of colon polyps Invasive ductal carcinoma of left breast Pre-diabetes Subclinical hyperthyroidism Surgical History Surgical History H/O laparoscopy (~1989) H/O mastectomy (~02/2021) History of (~2000) x3 1990, 1993, 2000 History of partial hysterectomy (~2004) Family History Family History Grandparent Family history of cardiovascular disease Carcinoma of colon Mother Family history of cardiovascular disease Family history of arthritis Family history of chronic obstructive pulmonary disease COPD (chronic obstructive pulmonary disease) Heart disease Acute myocardial infarction Father No problems noted. Other No problems noted. Sibling Hypertension brother Other Pancreatic cancer 2 aunts Social History Social History Social History: patient lives at home with her Mickey who will be her surrogate if needed. She has 3 kids and 3 grandchildren. They do have a dog. She wants to be a full code and she will have blood if needed Smoking status: Never smoker Second hand tobacco smoke exposure: No Alcohol intake: current Alcohol use details: 1 drink per month Substance use: never Substance use type: does not use Living arrangements
[2022-01-02 16:07] LABS: Troponin I 0.016 ng/mL (0.000-0.034)
[2022-01-02] MEDS: FUROSEMIDE INJ 40 MG/4 ML VIAL 20 MG IV PUSH (16:37)
[2022-01-02] MEDS: HYDROcodone/acetaminophen (*CRX) 5-325 MG TABLET 1 TAB PO (17:37)
--- NOTE | 2022-01-02 17:44 | ADMGEN ---
This patient, Anais Aguilar, was admitted to 3 [facility] Surg Room 320-01 at 1645. Patient/family oriented to hospital policies and general routines including ID bracelet, bed and alarms, visiting hours, pain management, procedures, bathroom and other care routines, personal items, smoking policy, room service/diet, and visiting hours. Information on how to activate the Rapid Response Team has been discussed. Patient/Family are encouraged to report perceived risks to care and to ask questions if they do not understand what they are told or what they should do.
[2022-01-02] MEDS: ACETAMINOPHEN 325 MG TABLET 650 MG PO (20:20)
[2022-01-02] MEDS: MORPHINE SULFATE (*CRX) 2 MG/ML INJ IV PUSH (20:20)
[2022-01-02 22:11] LABS: Troponin I 0.027 ng/mL (0.000-0.034)
[2022-01-03] VITALS (7 sets, daily range): BP systolic 122–143; BP diastolic 68–86; PULSE 95–113; RESP 18; TEMP 36–37.2; O2SAT 90–98
--- NOTE | 2022-01-03 | ECHO_ITS ---
Patient Info Name: Anais Aguilar Age: 56 years : 1965 Gender: Female Ht: 65 in Wt: 190 lbs BSA: 2.02 m2 HR: 99 bpm BP: 122 / 68 mmHg Exam Date: 01/03/2022 10:10 AM Exam Location: [facility] Patient Status: Inpatient Admit Date: 01/02/2022 Staff Ordering Physician: David Baires Coding Assistant: Eagle Borja, GERONIMO, RT Attending Provider: Chalo Solis MD Referring Physician: Dequan ANDREWS; Exam Type: CA echo doppler color flow Study Info Indications I48.1 - Persistent atrial fibrillation Complete two-dimensional, color flow and Doppler transthoracic echocardiogram is performed. Strain analysis performed. Summary 1. Complete two-dimensional, color flow and Doppler transthoracic echocardiogram is performed. 2. Left ventricular systolic function is normal, estimated at 60-65%. 3. The left ventricular diastolic function is grade I diastolic dysfunction. 4. There is no increased left ventricular wall thickness. 5. There is trace mitral valve regurgitation. 6. There is mild aortic valve sclerosis. Left Ventricle Left ventricular chamber dimension is normal. Left ventricular systolic function is normal, estimated at 60-65%. There is no increased left ventricular wall thickness. Left ventricular septal wall motion is normal. The left ventricular diastolic function is grade I diastolic dysfunction. Global longitudinal strain is abnormal at -16 %. Right Ventricle Right ventricular chamber dimension is normal. Right ventricular systolic function is normal. Left Atria Left atrial chamber dimension is normal. Right Atria Right atrial chamber dimension is normal. Atrial Septum Intact interatrial septum visualized by color flow imaging. Aortic Valve The aortic valve is trileaflet. There is mild aortic valve sclerosis. There is no aortic valve stenosis. There is no aortic valve regurgitation. Pulmonic Valve The pulmonic valve is normal. There is no pulmonic valve stenosis. There is no pulmonic regurgitation. Mitral Valve The mitral valve has normal leaflets. There is no mitral valve stenosis. There is trace mitral valve regurgitation. Tricuspid Valve The tricuspid valve leaflets are normal. There is no significant tricuspid valve stenosis. There is no tricuspid valve regurgitation. Pericardium/Pleural The pericardium appears normal. There is no pericardial effusion. Inferior Vena Cava Normal inferior vena cava with >50% collapse upon inspiration consistent with Empty right atrial pressure, 5 mmHg. Aorta The aortic root size at the sinus of Valsalva is normal. The prox ascending aorta size is normal. Left Ventricular Outflow Tract Name Value Normal LVOT 2D LVOT Diameter 1.9 cm LVOT Doppler LVOT Peak Gradient 5 mmHg LVOT Mean Gradient 2 mmHg LVOT VTI 16 cm LVOT VTI/AV VTI Ratio 1.0 LVOT Stroke Volume 43 ml LVOT CO 4.6 l/min LVOT CI
[2022-01-03 07:18] LABS: Alanine Aminotransferase 78 U/L (6-35); Alkaline Phosphatase 192 U/L (38-126); Anion Gap 13 mmol/L (8-16); Aspartate Amino Transferase 124 U/L (14-36); Bilirubin,Total 1.7 mg/dL (0.2-1.3); Blood Urea Nitrogen 13 mg/dL (7-17); Calcium 9.5 mg/dL (8.4-10.2); Carbon Dioxide 21 mmol/L (22-30); Chloride 102 mmol/L (98-107); Estimated CRCL calculation 85 ml/min; Estimated Glomerular Filt Rate > 60; Glucose 113 mg/dL (65-110); Magnesium 2.1 mg/dL (1.6-2.3); Potassium 4.5 mmol/L (3.4-5.0); Sodium 136 mmol/L (137-145)
[2022-01-03] MEDS: HYDROcodone/acetaminophen (*CRX) 5-325 MG TABLET 1 TAB PO ×2 (07:45→19:53)
[2022-01-03 07:48] LABS: Hemoglobin A1C 5.6 % (<5.7)
[2022-01-03 08:03] LABS: Basophils Percent Auto 0.3 % (0.2-1.2); Eosinophils Percent Auto 0.3 % (0-4.4); Hematocrit 44.5 % (37.0-47.0); Hemoglobin 14.5 g/dL (12.0-15.0); Immature Granulocyte Absolute 0.11 K/mm3 (0.00-0.031); Immature Granulocyte Percent A 1.2 % (0-0.5); Immature Platelet Fraction Pct 4.7 % (0.9-11.2); Lymphocytes Absolute Auto 0.99 K/mm3 (0.9-3.2); Lymphocytes Percent Auto 11.2 % (18.3-44.2); Mean Corpuscular HGB Conc 32.6 g/dl (32-36); Mean Corpuscular Hemoglobin 30.7 pg (26-34); Mean Corpuscular Volume 94.3 fl (80-100); Monocytes Absolute Auto 0.9 K/mm3 (0.1-0.6); Monocytes Percent Auto 10.4 % (2.6-8.5); Neutrophils Absolute Auto 6.7 K/mm3 (1.3-6.7); Neutrophils Percent Auto 76.6 % (45.5-73.1); Platelet Count Result 103 k/mm3 (150-375); Red Blood Count 4.72 M/mm3 (4.2-5.4); Red Cell Distribution Width 16.8 % (11.5-14.5); White Blood Count 8.8 K/mm3 (4.5-10.0)
[2022-01-03 08:13] LABS: Hepatitis B Surface Antigen Negative (Negative)
[2022-01-03 08:22] LABS: HAV RESULT Negative (Negative); Hepatitis B Core IgM Result Negative (Negative)
[2022-01-03 08:30] LABS: Hepatitis C Virus Antibody Negative (Negative)
--- NOTE | 2022-01-03 10:30 | P.PNIM_ITS ---
Progress Note: A&P Assessment and Plan (1) Acute respiratory failure with hypoxia: Code(s): J96.01 - Acute respiratory failure with hypoxia Status: Acute Assessment and Plan: * Requiring supplemental oxygen of 2.5 liters * ABG on 2.5 shows pH 7.476, CO2 31.9, pO2 103.3, HCPO3 23, Sat 98.1 * Shortness of breath with exertion or talking * Could be related to fluid overload * BNP is elevated * Echo EF of 60-65% with grade 1 diastolic dysfunction * Some edema noted * Lasix PRN * Wean oxygen to maintain saturations >90% (2) Dyspnea on exertion: Code(s): R06.09 - Other forms of dyspnea Status: Acute Assessment and Plan: * Seems closer to a fluid overload state * Continue supplemental oxygen * Wean to maintain saturation >90% * Trend SPO2 * Could be from fluid overload * Echo shows a grade 1 diastolic dysfunction * BNP elevated * trend urine output (3) Abdominal pain: Code(s): R10.9 - Unspecified abdominal pain Status: Acute Assessment and Plan: * CTA of the chest shows gallbladder wall thickening * Positive Borja's sign * US of the GB showed normal gallbladder, did see multiple liver masses which could reflect metastatic disease * Common bile duct is dilated, MRCP ordered * Liver enzymes elevated at 144/100 * Consider general surgery * Clear liquids for now * [place] and morphine for pain control * Zofran for antiemetics (4) Left sided sciatica: Code(s): M54.32 - Sciatica, left side Status: Acute Assessment and Plan: * Pain medications (5) COVID-19 virus infection: Code(s): U07.1 - COVID-19 Status: Acute Assessment and Plan: * Was positive November 23 * Was testing positive here, however is probably just reactive from recent infection * Trend respiratory status (6) Transaminitis: Code(s): R74.01 - Elevation of levels of liver transaminase levels Status: Acute Assessment and Plan: * AST/ALT 124/78 Alk phos 192 * RUQ ultrasound ordered * Hep panel negative * Trend labs Time Spent With Patient Time with patient: Greater than 35 minutes Subjective Date/time seen: 01/03/22 10:30 Interval history: 01/03/22 1030 Patient is still complaining of right rib pain with breathing especially when taking a deep breath. She did state that her sciatic is better she denies any chest pain, nausea, vomiting, diarrhea, constipation. She also stated that she was still having shortness of breath she has specially when she walks. She also stated that she got really hot folic she was going to pass out. She current denies any sweats fevers or chills. 01/02/22? 15:14 ?patient is a 56-year-old female with a past medical history of breast cancer, allergies who presented to the ED with complaints of increased shortness of breath over the last 2 days. ? Patient stated that recently she had went to for a with her her grandkids between the and the .? She stated prior before leaving she has? a sciatica problem and had talked to her doctor who told her to take Aleve to try to relieve the pain.? She said she was taking with meals a.m. and p.m. and that is when her shortness of breath really s tarted.? She stated the shortness of breath has been worse over the last couple days however she has had it for while but can not give a good timeline of when it all started.?
--- NOTE | 2022-01-03 10:30 | PM.IMPN ---
Progress Note: A&P Assessment and Plan (1) Acute respiratory failure with hypoxia: Code(s): J96.01 - Acute respiratory failure with hypoxia Status: Acute Assessment and Plan: Requiring supplemental oxygen of 2.5 liters ABG on 2.5 shows pH 7.476, CO2 31.9, pO2 103.3, HCPO3 23, Sat 98.1 Shortness of breath with exertion or talking Could be related to fluid overload BNP is elevated Echo EF of 60-65% with grade 1 diastolic dysfunction Some edema noted Lasix PRN Wean oxygen to maintain saturations >90% (2) Dyspnea on exertion: Code(s): R06.09 - Other forms of dyspnea Status: Acute Assessment and Plan: Seems closer to a fluid overload state Continue supplemental oxygen Wean to maintain saturation >90% Trend SPO2 Could be from fluid overload Echo shows a grade 1 diastolic dysfunction BNP elevated trend urine output (3) Abdominal pain: Code(s): R10.9 - Unspecified abdominal pain Status: Acute Assessment and Plan: CTA of the chest shows gallbladder wall thickening Positive Borja's sign US of the GB showed normal gallbladder, did see multiple liver masses which could reflect metastatic disease Common bile duct is dilated, MRCP ordered Liver enzymes elevated at 144/100 Consider general surgery Clear liquids for now [place] and morphine for pain control Zofran for antiemetics (4) Left sided sciatica: Code(s): M54.32 - Sciatica, left side Status: Acute Assessment and Plan: Pain medications (5) COVID-19 virus infection: Code(s): U07.1 - COVID-19 Status: Acute Assessment and Plan: Was positive November 23 Was testing positive here, however is probably just reactive from recent infection Trend respiratory status (6) Transaminitis: Code(s): R74.01 - Elevation of levels of liver transaminase levels Status: Acute Assessment and Plan: AST/ALT 124/78 Alk phos 192 RUQ ultrasound ordered Hep panel negative Trend labs Time Spent With Patient Time with patient: Greater than 35 minutes Subjective Date/time seen: 01/03/22 10:30 Interval history: 01/03/22 1030 Patient is still complaining of right rib pain with breathing especially when taking a deep breath. She did state that her sciatic is better she denies any chest pain, nausea, vomiting, diarrhea, constipation. She also stated that she was still having shortness of breath she has specially when she walks. She also stated that she got really hot folic she was going to pass out. She current denies any sweats fevers or chills. 01/02/22? 15:14 ?patient is a 56-year-old female with a past medical history of breast cancer, allergies who presented to the ED with complaints of increased shortness of breath over the last 2 days. ? Patient stated that recently she had went to for a with her her grandkids between the and the .? She stated prior before leaving she has? a sciatica problem and had talked to her doctor who told her to take Aleve to try to relieve the pain.? She said she was taking with meals a.m. and p.m. and that is when her shortness of breath really started.? She stated the shortness of breath has been worse over the last couple days however she has had it for while but can not give a good timeline of when it all started.? She denies having any cough or wheezes.? When you ask her to describe her sciatic pain she says that it has pain that starts from the left and now she has a new pain comes from the right goes up to her neck.? The pain on the right does started the level of the gallbladder.? She also states that she feels like her shortness of breath is from COVID however she was positive in November which her new positive makes it look more rebound.? She does not appear to have a new COVID infection.? She also stated that she has pain with taking a deep b
[2022-01-04] VITALS (9 sets, daily range): BP systolic 106–155; BP diastolic 79–89; PULSE 102–118; RESP 16–20; TEMP 36.4–37.4; O2SAT 90–94
[2022-01-04 05:35] LABS: Basophils Absolute Auto 0.1 K/mm3 (0.0-0.1); Basophils Percent Auto 0.6 % (0.2-1.2); Eosinophils Percent Auto 0.5 % (0-4.4); Hematocrit 46.6 % (37.0-47.0); Hemoglobin 14.4 g/dL (12.0-15.0); Immature Granulocyte Absolute 0.11 K/mm3 (0.00-0.031); Immature Granulocyte Percent A 1.3 % (0-0.5); Lymphocytes Absolute Auto 0.94 K/mm3 (0.9-3.2); Lymphocytes Percent Auto 11.4 % (18.3-44.2); Mean Corpuscular HGB Conc 30.9 g/dl (32-36); Mean Corpuscular Volume 100.2 fl (80-100); Mean Platelet Volume 10.5 fl (7.4-10.4); Monocytes Absolute Auto 0.9 K/mm3 (0.1-0.6); Monocytes Percent Auto 10.6 % (2.6-8.5); Neutrophils Absolute Auto 6.3 K/mm3 (1.3-6.7); Neutrophils Percent Auto 75.6 % (45.5-73.1); Platelet Count Result 108 k/mm3 (150-375); Red Blood Count 4.65 M/mm3 (4.2-5.4); Red Cell Distribution Width 17.3 % (11.5-14.5); White Blood Count 8.3 K/mm3 (4.5-10.0)
[2022-01-04] MEDS: diazePAM INJ (*CRX) 10 MG/2 ML SYRINGE 5 MG IV PUSH (06:12)
--- NOTE | 2022-01-04 07:46 | PM.IMPN ---
Progress Note: A&P Assessment and Plan (1) Acute respiratory failure with hypoxia: Code(s): J96.01 - Acute respiratory failure with hypoxia Status: Acute Assessment and Plan: Requiring supplemental oxygen of 2.5 liters, continuing Repeat chest xray ABG on 2.5 shows pH 7.476, CO2 31.9, pO2 103.3, HCPO3 23, Sat 98.1 Shortness of breath with exertion or talking Could be related to fluid overload BNP is elevated Echo EF of 60-65% with grade 1 diastolic dysfunction Some edema 1+ bilateral lower extremities Lasix PRN Wean oxygen to maintain saturations >90% (2) Dyspnea on exertion: Code(s): R06.09 - Other forms of dyspnea Status: Acute Assessment and Plan: Seems closer to a fluid overload state Continue supplemental oxygen Wean to maintain saturation >90% Trend SPO2 Could be from fluid overload Echo shows a grade 1 diastolic dysfunction BNP elevated trend urine output (3) Abdominal pain: Code(s): R10.9 - Unspecified abdominal pain Status: Acute Assessment and Plan: CTA of the chest shows gallbladder wall thickening US of the GB showed normal gallbladder, did see multiple liver masses which could reflect metastatic disease Common bile duct is dilated, MRCP ordered Liver enzymes elevated at Consider GI Could be related to the liver masses [place] and morphine for pain control Zofran for antiemetics (4) Left sided sciatica: Code(s): M54.32 - Sciatica, left side Status: Acute Assessment and Plan: Seems better controlled Pain medications (5) COVID-19 virus infection: Code(s): U07.1 - COVID-19 Status: Acute Assessment and Plan: Was positive November 23 Was testing positive here, however is probably just reactive from recent infection Trend respiratory status No indication for isolation at this time (6) Transaminitis: Code(s): R74.01 - Elevation of levels of liver transaminase levels Status: Acute Assessment and Plan: AST/ALT 134/83 Alk phos 224 RUQ ultrasound Liver masses recommend MRCP MRCP indicated liver metastasis with leisons Hep panel negative Trend labs (7) Liver masses: Code(s): R16.0 - Hepatomegaly, not elsewhere classified Status: Acute Assessment and Plan: Probably the cause of the abdominal pain Oncology consulted MRCP is ordered should be able to assess more of the masses She follows with Dr. Reddy at [facility] Follow up with your oncologist outpatient Appointment made with her Oncologist for 01/15/22 at 0915 Time Spent With Patient Time with patient: Greater than 35 minutes Subjective Date/time seen: 01/04/22 07:45 Interval history: 01/04/22 0745 Patient did have her MRCP done today. It does show what looks to be metastatic disease to liver into L2 vertebrae. Recommendations for a biopsy. Biopsy has been ordered at this time. Patient was very emotional about hearing the news. She denies any chest pain, weakness, fatigue. She does state that she has a little bit of pain with taking a deep breath. She is still on oxygen however trying to wean her has been a challenge as she will go all the way down to 80s on room air. Will repeat chest x-ray 01/03/22 1030 Patient is still complaining of right rib pain with breathing especially when taking a deep breath. She did state that her sciatic is better she denies any chest pain, nausea, vomiting, diarrhea, constipation. She also stated that she was still having shortness of breath she has specially when she walks. She also stated that she got really hot folic she was going to pass out. She current denies any sweats fevers or chills. 01/02/22? 15:14 ?patient is a 56-year-old female with a past medical history of breast cancer, allergies who presented to the ED with complaints of increased shortness
--- NOTE | 2022-01-04 07:46 | P.PNIM_ITS ---
Progress Note: A&P Assessment and Plan (1) Acute respiratory failure with hypoxia: Code(s): J96.01 - Acute respiratory failure with hypoxia Status: Acute Assessment and Plan: * Requiring supplemental oxygen of 2.5 liters, continuing * Repeat chest xray * ABG on 2.5 shows pH 7.476, CO2 31.9, pO2 103.3, HCPO3 23, Sat 98.1 * Shortness of breath with exertion or talking * Could be related to fluid overload * BNP is elevated * Echo EF of 60-65% with grade 1 diastolic dysfunction * Some edema 1+ bilateral lower extremities * Lasix PRN * Wean oxygen to maintain saturations >90% (2) Dyspnea on exertion: Code(s): R06.09 - Other forms of dyspnea Status: Acute Assessment and Plan: * Seems closer to a fluid overload state * Continue supplemental oxygen * Wean to maintain saturation >90% * Trend SPO2 * Could be from fluid overload * Echo shows a grade 1 diastolic dysfunction * BNP elevated * trend urine output (3) Abdominal pain: Code(s): R10.9 - Unspecified abdominal pain Status: Acute Assessment and Plan: * CTA of the chest shows gallbladder wall thickening * US of the GB showed normal gallbladder, did see multiple liver masses which could reflect metastatic disease * Common bile duct is dilated, MRCP ordered * Liver enzymes elevated at * Consider GI * Could be related to the liver masses * [place] and morphine for pain control * Zofran for antiemetics (4) Left sided sciatica: Code(s): M54.32 - Sciatica, left side Status: Acute Assessment and Plan: * Seems better controlled * Pain medications (5) COVID-19 virus infection: Code(s): U07.1 - COVID-19 Status: Acute Assessment and Plan: * Was positive November 23 * Was testing positive here, however is probably just reactive from recent infection * Trend respiratory status * No indication for isolation at this time (6) Transaminitis: Code(s): R74.01 - Elevation of levels of liver transaminase levels Status: Acute Assessment and Plan: * AST/ALT 134/83 Alk phos 224 * RUQ ultrasound Liver masses recommend MRCP * MRCP indicated liver metastasis with leisons * Hep panel negative * Trend labs (7) Liver masses: Code(s): R16.0 - Hepatomegaly, not elsewhere classified Status: Acute Assessment and Plan: * Probably the cause of the abdominal pain * Oncology consulted * MRCP is ordered should be able to assess more of the masses * She follows with Dr. Reddy at [facility] * Follow up with your oncologist outpatient * Appointment made with her Oncologist for 01/15/22 at 0915 Time Spent With Patient Time with patient: Greater than 35 minutes Subjective Date/time seen: 01/04/22 07:45 Interval history: 01/04/22 0745 Patient did have her MRCP done today. It does show what looks to be metastatic disease to liver into L2 vertebrae. Recommendations for a biopsy. Biopsy has been ordered at this time. Patient was very emotional about hearing the news. She denies any chest pain, weakness, fatigue. She does state that she has a little bit of pain with taking a deep breath. She is still on oxygen however trying to wean her has been a challenge as she will go all the way down to 80s on room air. Will repeat chest x-ray 01/03/22 1030 Ana
[2022-01-04 09:10] LABS: INR 1.1; Prothrombin Time 13.7 Seconds (11.1-14.7)
[2022-01-04 09:11] LABS: Partial Thromboplastin Time 28.4 SECONDS (22.3-36.8)
[2022-01-04 09:12] LABS: Alanine Aminotransferase 83 U/L (6-35); Albumin Level 4.3 g/dL (3.5-5.1); Alkaline Phosphatase 224 U/L (38-126); Anion Gap 8 mmol/L (8-16); Aspartate Amino Transferase 134 U/L (14-36); Bilirubin,Total 1.5 mg/dL (0.2-1.3); Blood Urea Nitrogen 17 mg/dL (7-17); Calcium 9.5 mg/dL (8.4-10.2); Carbon Dioxide 26 mmol/L (22-30); Chloride 104 mmol/L (98-107); Estimated CRCL calculation 75 ml/min; Estimated Glomerular Filt Rate > 60; Glucose 108 mg/dL (65-110); Magnesium 2.2 mg/dL (1.6-2.3); Potassium 4.1 mmol/L (3.4-5.0); Sodium 138 mmol/L (137-145)
[2022-01-04] MEDS: HYDROcodone/acetaminophen (*CRX) 5-325 MG TABLET 1 TAB PO (10:43)
[2022-01-04] MEDS: SODIUM CHLORIDE 0.9% IV 1,000 ML 80 ML IV CONT (10:47)
[2022-01-04] MEDS: ACETAMINOPHEN 325 MG TABLET 650 MG PO (15:52)
[2022-01-04] MEDS: DULoxetine HCL 30 MG CAPSULE.DR PO (16:54)
--- NOTE | 2022-01-04 17:47 | PDONCCN ---
HPI - Date of Consult Date/Time: 01/04/22 17:47 Requesting Physician: Chalo Solis MD Primary Care Provider: Urvashi Murphy MD - Consult Narrative Reason for consult: Liver mass Narrative: Anais Aguilar is a 56 year old female with history of early stage left-sided breast cancer diagnosed in June of 2020 status post neoadjuvant chemotherapy then complete mastectomy and then adjuvant radiation therapy. Her tumor was hormone receptor negative. She came into the hospital with sudden onset of right upper quadrant abdominal pain with radiation to the back. She denies any weight loss. She denies any new lungs lungs and lymphadenopathy. CTA chest showed no evidence of pulmonary embolism but there was possible wall thickening of the gallbladder. Abdominal ultrasound showed multiple liver masses which could reflect metastatic disease. MRCP showed liver masses with L2 vertebral body lesion. Patient had liver biopsy done on January 02 and report is pending. 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 Environmental allergies History of colon polyps Invasive ductal carcinoma of left breast Pre-diabetes Subclinical hyperthyroidism Surgical History: Surgical History (Last Reviewed 01/02/22 @ 15:55 by RAFAEL Tracey) H/O laparoscopy Onset Date: ~1989 H/O mastectomy Onset Date: ~02/2021 History of Onset Date: ~2000 x3 1990, 1993, 2000 History of partial hysterectomy Onset Date: ~2004 Family History: Family History (Last Reviewed 01/02/22 @ 17:47 by Swati Hensley RN) Grandparent Family history of cardiovascular disease Carcinoma of colon Mother Family history of cardiovascular disease Family history of arthritis Family history of chronic obstructive pulmonary disease COPD (chronic obstructive pulmonary disease) Heart disease Acute myocardial infarction Father No problems noted. Other No problems noted. Sibling Hypertension brother Other Pancreatic cancer 2 aunts - Social History Social History: Social History (Last Reviewed 01/02/22 @ 15:59 by RAFAEL Tracey) Gender Identity: Gender identity (if verbalized by the patient): Female Sexual Orientation: Sexual Orientation (if Verbalized by the Patient): Straight or Heterosexual Alcohol Use: Alcohol intake: current Alcohol use details: 1 drink per month Substance Use: Substance use: never Substance use type: does not use Others: Spiritual care concerns: No Agree to blood products: Yes Living Arrangements: Living arrangements: with family Oppucation/Education: Occupation/Education: occupation Smoking Status: Smoking status: Never smoker Second hand tobacco smoke exposure: No Exam - Vital Signs Vital Signs - 24 hr 01/03/22 21:31 01/03/22 22:02 01/04/22 05:32 Temperature 37.1 C 36.6 C Pulse Rate 113 H 103 H Respiratory Rate 18 17 Blood Pressure 136/75 132/82 Pulse Oximetry 90 94 94 Oxygen Delivery Oxygen Flow Rate 01/04/22 08:35 01/04/22 08:00 01/04/22 08:00 Temperature 36.6 C Pulse Rate 105 H Respiratory Rate 20 Blood Pressure 106/79 Pulse Oximetry 90 90 90 Oxygen Delivery Room Air Nasal Cannula Oxygen Flow Rate 1 01/04/22 09:43 01/04/22 10:08 01/04/22 15:52 Temperature 37.4 C Pulse Rate 102 H 103 H Respiratory Rate 16 16 Blood Pressure 123/89 130/87 Pulse Oximetry 91 90 Oxygen Delivery Oxygen Flow Rate 01/04/22 16:30 Temperature 36.4 C Pulse Rate Respiratory Rate Blood Pressure Pulse Oximetry Oxygen Delivery Oxygen Flow Rate - Exam HEENT: JENNIFER GALDAMEZ,
[2022-01-04] MEDS: MORPHINE SULFATE (*CRX) 2 MG/ML INJ IV PUSH (21:36)
[2022-01-05] VITALS (10 sets, daily range): BP systolic 128–146; BP diastolic 75–79; PULSE 106–108; RESP 18–20; TEMP 36.1–37.7; O2SAT 81–94
[2022-01-05] MEDS: MORPHINE SULFATE (*CRX) 2 MG/ML INJ IV PUSH (01:28)
[2022-01-05 06:56] LABS: Basophils Percent Auto 0.4 % (0.2-1.2); Eosinophils Percent Auto 0.1 % (0-4.4); Hemoglobin 12.3 g/dL (12.0-15.0); Immature Granulocyte Absolute 0.16 K/mm3 (0.00-0.031); Immature Granulocyte Percent A 1.9 % (0-0.5); Immature Platelet Fraction Pct 5.2 % (0.9-11.2); Lymphocytes Absolute Auto 0.81 K/mm3 (0.9-3.2); Lymphocytes Percent Auto 9.5 % (18.3-44.2); Mean Corpuscular HGB Conc 32.4 g/dl (32-36); Mean Corpuscular Hemoglobin 30.9 pg (26-34); Mean Corpuscular Volume 95.5 fl (80-100); Mean Platelet Volume 11.4 fl (7.4-10.4); Monocytes Absolute Auto 1.1 K/mm3 (0.1-0.6); Monocytes Percent Auto 13.2 % (2.6-8.5); Neutrophils Absolute Auto 6.4 K/mm3 (1.3-6.7); Neutrophils Percent Auto 74.9 % (45.5-73.1); Platelet Count Result 61 k/mm3 (150-375); Red Blood Count 3.98 M/mm3 (4.2-5.4); Red Cell Distribution Width 16.7 % (11.5-14.5); White Blood Count 8.5 K/mm3 (4.5-10.0)
[2022-01-05 07:22] LABS: Alanine Aminotransferase 63 U/L (6-35); Albumin Level 3.3 g/dL (3.5-5.1); Alkaline Phosphatase 172 U/L (38-126); Anion Gap 7 mmol/L (8-16); Aspartate Amino Transferase 107 U/L (14-36); Blood Urea Nitrogen 13 mg/dL (7-17); Calcium 8.7 mg/dL (8.4-10.2); Carbon Dioxide 22 mmol/L (22-30); Chloride 101 mmol/L (98-107); Estimated CRCL calculation 85 ml/min; Estimated Glomerular Filt Rate > 60; Glucose 120 mg/dL (65-110); Magnesium 2.1 mg/dL (1.6-2.3); Potassium 3.8 mmol/L (3.4-5.0); Sodium 130 mmol/L (137-145)
[2022-01-05] MEDS: HYDROcodone/acetaminophen (*CRX) 5-325 MG TABLET 1 TAB PO (07:50)
[2022-01-05] MEDS: DULoxetine HCL 30 MG CAPSULE.DR PO (07:52)
[2022-01-05] MEDS: SODIUM CHLORIDE 0.9% IV 250 ML 100 ML IV CONT (09:16)
--- NOTE | 2022-01-05 10:30 | P.PNIM_ITS ---
Progress Note: A&P Assessment and Plan (1) Acute respiratory failure with hypoxia: Code(s): J96.01 - Acute respiratory failure with hypoxia Status: Acute Assessment and Plan: * Requiring supplemental oxygen of 3L * Repeat chest xray shows no abnormalities * ABG on Room air shows pH 7.475, CO2 25.4, pO2 41.7, HCPO3 18.3, Sat 81.8 * Shortness of breath better with talking or exertion * Could be related to fluid overload * BNP is elevated * Echo EF of 60-65% with grade 1 diastolic dysfunction * Some edema 1+ bilateral lower extremities * Lasix PRN * Wean oxygen to maintain saturations >90% (2) Dyspnea on exertion: Code(s): R06.09 - Other forms of dyspnea Status: Acute Assessment and Plan: * Continue supplemental oxygen * Wean to maintain saturation >90% * Trend SPO2 * Could be from fluid overload * Echo shows a grade 1 diastolic dysfunction * BNP elevated * trend urine output (3) Abdominal pain: Code(s): R10.9 - Unspecified abdominal pain Status: Acute Assessment and Plan: * CTA of the chest shows gallbladder wall thickening * US of the GB showed normal gallbladder, did see multiple liver masses which could reflect metastatic disease * Common bile duct is dilated, MRCP ordered * Liver enzymes elevated at 107/63, going down * Could be related to the liver masses * [place] and morphine for pain control * Zofran for antiemetics (4) Left sided sciatica: Code(s): M54.32 - Sciatica, left side Status: Acute Assessment and Plan: * Seems better controlled * Pain medications (5) COVID-19 virus infection: Code(s): U07.1 - COVID-19 Status: Acute Assessment and Plan: * Was positive November 23 * Was testing positive here, however is probably just reactive from recent infection * Trend respiratory status * No indication for isolation at this time (6) Transaminitis: Code(s): R74.01 - Elevation of levels of liver transaminase levels Status: Acute Assessment and Plan: * AST/ALT 107/63 Alk phos 172 * RUQ ultrasound Liver masses recommend MRCP * MRCP indicated liver metastasis with leisons * Hep panel negative * Trend labs (7) Liver masses: Code(s): R16.0 - Hepatomegaly, not elsewhere classified Status: Acute Assessment and Plan: * Probably the cause of the abdominal pain * Oncology consulted * MRCP is ordered should be able to assess more of the masses * She follows with Dr. Reddy at [facility] * Follow up with your oncologist outpatient * Appointment made with her Oncologist for 01/15/22 at 0915 Time Spent With Patient Time with patient: Greater than 35 minutes Subjective Date/time seen: 01/05/22 1030 Interval history: 01/05/22 1030 Patient is ready to go home however patient still on oxygen. Did quite a few different things to see about her oxygen level however patient drops into the mid 80s without oxygen and stays there. Chest x-ray from yesterday shows no abnormality patient has no issues with breathing she does still have some issues taking a deep breath however she does not complain of any shortness of breath. Pain is an issue still. She is mostly complaining of pain where her biopsy was done. She currently denies any chest pain, nausea, vomiting, diarrhea or constipation. Will keep her overni
--- NOTE | 2022-01-05 10:30 | PM.IMPN ---
Progress Note: A&P Assessment and Plan (1) Acute respiratory failure with hypoxia: Code(s): J96.01 - Acute respiratory failure with hypoxia Status: Acute Assessment and Plan: Requiring supplemental oxygen of 3L Repeat chest xray shows no abnormalities ABG on Room air shows pH 7.475, CO2 25.4, pO2 41.7, HCPO3 18.3, Sat 81.8 Shortness of breath better with talking or exertion Could be related to fluid overload BNP is elevated Echo EF of 60-65% with grade 1 diastolic dysfunction Some edema 1+ bilateral lower extremities Lasix PRN Wean oxygen to maintain saturations >90% (2) Dyspnea on exertion: Code(s): R06.09 - Other forms of dyspnea Status: Acute Assessment and Plan: Continue supplemental oxygen Wean to maintain saturation >90% Trend SPO2 Could be from fluid overload Echo shows a grade 1 diastolic dysfunction BNP elevated trend urine output (3) Abdominal pain: Code(s): R10.9 - Unspecified abdominal pain Status: Acute Assessment and Plan: CTA of the chest shows gallbladder wall thickening US of the GB showed normal gallbladder, did see multiple liver masses which could reflect metastatic disease Common bile duct is dilated, MRCP ordered Liver enzymes elevated at 107/63, going down Could be related to the liver masses [place] and morphine for pain control Zofran for antiemetics (4) Left sided sciatica: Code(s): M54.32 - Sciatica, left side Status: Acute Assessment and Plan: Seems better controlled Pain medications (5) COVID-19 virus infection: Code(s): U07.1 - COVID-19 Status: Acute Assessment and Plan: Was positive November 23 Was testing positive here, however is probably just reactive from recent infection Trend respiratory status No indication for isolation at this time (6) Transaminitis: Code(s): R74.01 - Elevation of levels of liver transaminase levels Status: Acute Assessment and Plan: AST/ALT 107/63 Alk phos 172 RUQ ultrasound Liver masses recommend MRCP MRCP indicated liver metastasis with leisons Hep panel negative Trend labs (7) Liver masses: Code(s): R16.0 - Hepatomegaly, not elsewhere classified Status: Acute Assessment and Plan: Probably the cause of the abdominal pain Oncology consulted MRCP is ordered should be able to assess more of the masses She follows with Dr. Reddy at [facility] Follow up with your oncologist outpatient Appointment made with her Oncologist for 01/15/22 at 0915 Time Spent With Patient Time with patient: Greater than 35 minutes Subjective Date/time seen: 01/05/22 1030 Interval history: 01/05/22 1030 Patient is ready to go home however patient still on oxygen. Did quite a few different things to see about her oxygen level however patient drops into the mid 80s without oxygen and stays there. Chest x-ray from yesterday shows no abnormality patient has no issues with breathing she does still have some issues taking a deep breath however she does not complain of any shortness of breath. Pain is an issue still. She is mostly complaining of pain where her biopsy was done. She currently denies any chest pain, nausea, vomiting, diarrhea or constipation. Will keep her overnight to see about [employer]. Patient was noted to be even more hypoxic and requiring more oxygen. Consulted Dr. Cortes, who recommended repeating CTA and getting HIT panel. It was reported by nursing of no new findings on the CT. 01/04/22 0745 ? Patient did have her MRCP done today.? It does show what looks to be metastatic disease to liver into L2 vertebrae.? Recommendations for a biopsy.? Biopsy has been ordered at this time.? Patient was very emotional about hearing the news.? She denies any chest pain, weakness, fatigue.? She does state that she has a graeme
[2022-01-05] MEDS: oxyCODONE HCL (*CRX) 5 MG TAB IR PO ×3 (11:18→22:41)
[2022-01-05 16:27] LABS: Alveolar/Arterial O2 Gradient 77.6 mmHg; Base Excess ABG -3.6 mEq/l (+/-2.0); Carboxyhemoglobin 0.1 % THb (0-2.0); Fractional Inspired Oxygen 21 %; HCO3 ABG 18.3 mEq/l (22.0-26.0); Methemoglobin ABG 0.3 %THb (0-1.5); Oxygen Content ABG 14.9 %vol (16.0-22.0); PCO2 ABG 25.4 mmHg (35.0-45.0); PO2 FiO2 Ratio Arterial Blood 1.99 %; Reduced Hemoglobin 21.1 %THb (0-5.0); Total Hemoglobin 13.5 g/dL (12.0-18.0); pH ABG 7.475 (7.350-7.450)
[2022-01-05 16:31] LABS: PO2 ABG 41.7 mmHg (80.0-100.0)
[2022-01-05 16:33] LABS: Oxygen Saturation ABG 81.8 % (95.0-100.0)
[2022-01-05 16:34] LABS: Device ROOM AIR; Oxyhemoglobin 78.5 % THb (90.0-100.0); Site Drawn RIGHT BRACHIAL
[2022-01-06] VITALS (12 sets, daily range): BP systolic 106–126; BP diastolic 66–73; PULSE 94–108; RESP 16–20; TEMP 37.1–37.9; O2SAT 88–95
[2022-01-06 08:30] LABS: Basophils Absolute Auto 0.1 K/mm3 (0.0-0.1); Basophils Percent Auto 0.5 % (0.2-1.2); Eosinophils Absolute Auto 0.1 K/mm3 (0-0.3); Eosinophils Percent Auto 0.6 % (0-4.4); Hematocrit 40.5 % (37.0-47.0); Hemoglobin 12.9 g/dL (12.0-15.0); Immature Granulocyte Absolute 0.07 K/mm3 (0.00-0.031); Immature Granulocyte Percent A 0.8 % (0-0.5); Immature Platelet Fraction Pct 7.2 % (0.9-11.2); Lymphocytes Absolute Auto 0.87 K/mm3 (0.9-3.2); Lymphocytes Percent Auto 9.4 % (18.3-44.2); Mean Corpuscular HGB Conc 31.9 g/dl (32-36); Mean Corpuscular Hemoglobin 30.6 pg (26-34); Mean Platelet Volume 10.4 fl (7.4-10.4); Monocytes Absolute Auto 0.8 K/mm3 (0.1-0.6); Neutrophils Absolute Auto 7.4 K/mm3 (1.3-6.7); Neutrophils Percent Auto 79.7 % (45.5-73.1); Platelet Count Result 70 k/mm3 (150-375); Red Blood Count 4.22 M/mm3 (4.2-5.4); Red Cell Distribution Width 16.6 % (11.5-14.5); White Blood Count 9.3 K/mm3 (4.5-10.0)
[2022-01-06 08:48] LABS: Alanine Aminotransferase 54 U/L (6-35); Albumin Level 3.7 g/dL (3.5-5.1); Alkaline Phosphatase 185 U/L (38-126); Anion Gap 8 mmol/L (8-16); Aspartate Amino Transferase 87 U/L (14-36); Blood Urea Nitrogen 13 mg/dL (7-17); Calcium 8.9 mg/dL (8.4-10.2); Carbon Dioxide 22 mmol/L (22-30); Chloride 103 mmol/L (98-107); Estimated CRCL calculation 85 ml/min; Estimated Glomerular Filt Rate > 60; Glucose 126 mg/dL (65-110); Potassium 3.9 mmol/L (3.4-5.0); Sodium 133 mmol/L (137-145)
[2022-01-06] MEDS: oxyCODONE HCL (*CRX) 5 MG TAB IR PO ×2 (08:54→19:00)
[2022-01-06] MEDS: DULoxetine HCL 30 MG CAPSULE.DR PO (08:55)
--- NOTE | 2022-01-06 09:00 | PM.IMPN ---
Progress Note: A&P Assessment and Plan (1) Acute respiratory failure with hypoxia: Code(s): J96.01 - Acute respiratory failure with hypoxia Status: Acute Assessment and Plan: Requiring supplemental oxygen of 1-1.5 Repeat chest xray shows no abnormalities ABG on Room air shows pH 7.475, CO2 25.4, pO2 41.7, HCPO3 18.3, Sat 81.8 Shortness of breath better with talking or exertion Could be related to fluid overload BNP is elevated Echo EF of 60-65% with grade 1 diastolic dysfunction Some edema 1+ bilateral lower extremities Lasix PRN Wean oxygen to maintain saturations >90% Repeat CTA shows some atelectasis IS (2) Dyspnea on exertion: Code(s): R06.09 - Other forms of dyspnea Status: Acute Assessment and Plan: Continue supplemental oxygen Wean to maintain saturation >90% Trend SPO2 Could be from fluid overload Echo shows a grade 1 diastolic dysfunction BNP elevated trend urine output (3) Abdominal pain: Code(s): R10.9 - Unspecified abdominal pain Status: Acute Assessment and Plan: CTA of the chest shows gallbladder wall thickening and is also seen on the repeat CTA from 01/05/22 US of the GB showed normal gallbladder, did see multiple liver masses which could reflect metastatic disease Common bile duct is dilated, MRCP ordered Liver enzymes elevated at 107/63, going down Could be related to the liver masses [place] and morphine for pain control Zofran for antiemetics Added miralax and colace for constipation (4) Left sided sciatica: Code(s): M54.32 - Sciatica, left side Status: Acute Assessment and Plan: Seems better controlled Pain medications (5) COVID-19 virus infection: Code(s): U07.1 - COVID-19 Status: Acute Assessment and Plan: Was positive November 23 Was testing positive here, however is probably just reactive from recent infection Trend respiratory status No indication for isolation at this time (6) Transaminitis: Code(s): R74.01 - Elevation of levels of liver transaminase levels Status: Acute Assessment and Plan: AST/ALT 87/54 Alk phos 185 RUQ ultrasound Liver masses recommend MRCP MRCP indicated liver metastasis with leisons Hep panel negative Trend labs (7) Liver masses: Code(s): R16.0 - Hepatomegaly, not elsewhere classified Status: Acute Assessment and Plan: Probably the cause of the abdominal pain Oncology consulted MRCP is ordered should be able to assess more of the masses She follows with Dr. Reddy at [facility] Follow up with your oncologist outpatient Appointment made with her Oncologist for 01/15/22 at 0915 (8) Thrombocytopenia: Code(s): D69.6 - Thrombocytopenia, unspecified Status: Acute Assessment and Plan: PLT was noted to be 61 yesterday, currently 70 She did get one dose of lovenox in the ED Hit Panel pending Continue to trend labs Hold anticoagulation for now CTA does not show any PE Venous doppler negative for DVT Plan 15 minutes with collaboration with Dr. Cortes about the case and care of the patient Time Spent With Patient Time with patient: Greater than 35 minutes Subjective Date/time seen: 01/06/22 09:00 Interval history: 01/06/22 0900 Patient is sitting up in bed and states that she feels okay today. She denies any nausea, vomiting, diarrhea, shortness of breath. She did state that it kind of has a take when she takes a deep breath. She also states that she feels constipated has not had a bowel movement. She is ready to to go however I explained to her that if she can stay off the oxygen we possibly get her out tomorrow. Platelet count is trending upward and is 70 today. 01/05/22 1030 Patient is ready to go home however patient still on oxygen. Did quite a few differen
--- NOTE | 2022-01-06 09:00 | P.PNIM_ITS ---
Progress Note: A&P Assessment and Plan (1) Acute respiratory failure with hypoxia: Code(s): J96.01 - Acute respiratory failure with hypoxia Status: Acute Assessment and Plan: * Requiring supplemental oxygen of 1-1.5 * Repeat chest xray shows no abnormalities * ABG on Room air shows pH 7.475, CO2 25.4, pO2 41.7, HCPO3 18.3, Sat 81.8 * Shortness of breath better with talking or exertion * Could be related to fluid overload * BNP is elevated * Echo EF of 60-65% with grade 1 diastolic dysfunction * Some edema 1+ bilateral lower extremities * Lasix PRN * Wean oxygen to maintain saturations >90% * Repeat CTA shows some atelectasis * IS (2) Dyspnea on exertion: Code(s): R06.09 - Other forms of dyspnea Status: Acute Assessment and Plan: * Continue supplemental oxygen * Wean to maintain saturation >90% * Trend SPO2 * Could be from fluid overload * Echo shows a grade 1 diastolic dysfunction * BNP elevated * trend urine output (3) Abdominal pain: Code(s): R10.9 - Unspecified abdominal pain Status: Acute Assessment and Plan: * CTA of the chest shows gallbladder wall thickening and is also seen on the re peat CTA from 01/05/22 * US of the GB showed normal gallbladder, did see multiple liver masses which could reflect metastatic disease * Common bile duct is dilated, MRCP ordered * Liver enzymes elevated at 107/63, going down * Could be related to the liver masses * [place] and morphine for pain control * Zofran for antiemetics * Added miralax and colace for constipation (4) Left sided sciatica: Code(s): M54.32 - Sciatica, left side Status: Acute Assessment and Plan: * Seems better controlled * Pain medications (5) COVID-19 virus infection: Code(s): U07.1 - COVID-19 Status: Acute Assessment and Plan: * Was positive November 23 * Was testing positive here, however is probably just reactive from recent infection * Trend respiratory status * No indication for isolation at this time (6) Transaminitis: Code(s): R74.01 - Elevation of levels of liver transaminase levels Status: Acute Assessment and Plan: * AST/ALT 87/54 Alk phos 185 * RUQ ultrasound Liver masses recommend MRCP * MRCP indicated liver metastasis with leisons * Hep panel negative * Trend labs (7) Liver masses: Code(s): R16.0 - Hepatomegaly, not elsewhere classified Status: Acute Assessment and Plan: * Probably the cause of the abdominal pain * Oncology consulted * MRCP is ordered should be able to assess more of the masses * She follows with Dr. Reddy at [facility] * Follow up with your oncologist outpatient * Appointment made with her Oncologist for 01/15/22 at 0915 (8) Thrombocytopenia: Code(s): D69.6 - Thrombocytopenia, unspecified Status: Acute Assessment and Plan: * PLT was noted to be 61 yesterday, currently 70 * She did get one dose of lovenox in the ED * Hit Panel pending * Continue to trend labs * Hold anticoagulation for now * CTA does not show any PE * Venous doppler negative for DVT Plan 15 minutes with collaboration with Dr. Cortes about the case and care of the patient Time Spent With Patient Time with patient: Greater than 35 minutes [place]
[2022-01-06] MEDS: polyethylene glycoL 3350 17 GM POWD.PACK PO (11:43)
[2022-01-06] MEDS: FONDAPARINUX SODIUM 5 MG/0.4 ML SYRINGE SUB-Q (11:44)
[2022-01-06] MEDS: FONDAPARINUX SODIUM 2.5 MG/0.5 ML SYRINGE SUB-Q (11:44)
[2022-01-06] MEDS: DOCUSATE SODIUM 100 MG CAPSULE PO ×2 (11:44→20:15)
[2022-01-06] MEDS: ACETAMINOPHEN 325 MG TABLET 650 MG PO ×2 (13:51→22:33)
[2022-01-06] MEDS: HYDROmorphone HCL INJ (*CRX) 1 MG/ML SYR 0.5 MG IV PUSH (21:49)
[2022-01-06] MEDS: LIDOCAINE 5% PATCH 1 PATCH TRANSDERM (22:39)
[2022-01-07] VITALS (14 sets, daily range): BP systolic 94–113; BP diastolic 62–69; PULSE 85–125; RESP 16–24; TEMP 35.6–37.2; O2SAT 81–100
--- NOTE | 2022-01-07 | ECHO_ITS ---
Patient Info Name: Anais Aguilar Age: 56 years : 1965 Gender: Female Ht: 65 in Wt: 190 lbs BSA: 2.02 m2 HR: 106 bpm Heart Rhythm: Sinus Rhythm Technical Quality: Fair Exam Date: 01/07/2022 1:32 PM Exam Location: [facility] Pul[facility] Patient Status: Inpatient Admit Date: 01/02/2022 Staff Ordering Physician: David Baires Head Host/Hostess: Clary Dewitt RDCS Attending Provider: Chalo Solis MD Referring Physician: Dequan ANDREWS; Exam Type: CA echo limited w bubble study Study Info Indications - for bubble study Limited two-dimensional transthoracic echocardiogram is performed with agitated saline. Contrast/Agitated Saline Contrast/Ag. Saline: Agitated Saline Amount: 20.00 ml Administered By: Clary Dewitt RDCS Existing IV Access: Yes IV Access Condition: patent with no signs of infiltration Summary 1. Limited study with agitated saline contrast performed. 2. No evidence of intracardiac shunt identified with good opacification of the right heart chambers. Report Signatures
[2022-01-07 06:15] LABS: Basophils Percent Auto 0.4 % (0.2-1.2); Eosinophils Absolute Auto 0.1 K/mm3 (0-0.3); Eosinophils Percent Auto 1.8 % (0-4.4); Hematocrit 39.8 % (37.0-47.0); Hemoglobin 12.6 g/dL (12.0-15.0); Immature Granulocyte Absolute 0.04 K/mm3 (0.00-0.031); Immature Granulocyte Percent A 0.8 % (0-0.5); Immature Platelet Fraction Pct 8.3 % (0.9-11.2); Lymphocytes Absolute Auto 0.51 K/mm3 (0.9-3.2); Lymphocytes Percent Auto 10.2 % (18.3-44.2); Mean Corpuscular HGB Conc 31.7 g/dl (32-36); Mean Corpuscular Hemoglobin 30.8 pg (26-34); Mean Corpuscular Volume 97.3 fl (80-100); Mean Platelet Volume 11.3 fl (7.4-10.4); Monocytes Absolute Auto 0.5 K/mm3 (0.1-0.6); Neutrophils Absolute Auto 3.9 K/mm3 (1.3-6.7); Neutrophils Percent Auto 77.8 % (45.5-73.1); Platelet Count Result 51 k/mm3 (150-375); Red Blood Count 4.09 M/mm3 (4.2-5.4); Red Cell Distribution Width 16.2 % (11.5-14.5)
[2022-01-07 06:22] LABS: Alanine Aminotransferase 46 U/L (6-35); Albumin Level 3.4 g/dL (3.5-5.1); Alkaline Phosphatase 176 U/L (38-126); Anion Gap 3 mmol/L (8-16); Aspartate Amino Transferase 79 U/L (14-36); Bilirubin,Total 1.7 mg/dL (0.2-1.3); Blood Urea Nitrogen 13 mg/dL (7-17); Calcium 8.7 mg/dL (8.4-10.2); Carbon Dioxide 25 mmol/L (22-30); Chloride 103 mmol/L (98-107); Estimated CRCL calculation 98 ml/min; Estimated Glomerular Filt Rate > 60; Glucose 110 mg/dL (65-110); Magnesium 2.2 mg/dL (1.6-2.3); Potassium 3.7 mmol/L (3.4-5.0); Sodium 131 mmol/L (137-145)
[2022-01-07] MEDS: DULoxetine HCL 30 MG CAPSULE.DR PO (08:35)
[2022-01-07] MEDS: DOCUSATE SODIUM 100 MG CAPSULE PO ×2 (08:35→20:20)
[2022-01-07] MEDS: polyethylene glycoL 3350 17 GM POWD.PACK PO (08:35)
--- NOTE | 2022-01-07 09:15 | P.PNIM_ITS ---
Progress Note: A&P Assessment and Plan (1) Acute respiratory failure with hypoxia: Code(s): J96.01 - Acute respiratory failure with hypoxia Status: Acute Assessment and Plan: * Requiring supplemental oxygen of 1-1.5 * Repeat chest xray shows no abnormalities * ABG on Room air shows pH 7.475, CO2 25.4, pO2 41.7, HCPO3 18.3, Sat 81.8 * Shortness of breath better with talking or exertion * Could be related to fluid overload * BNP is elevated * Echo EF of 60-65% with grade 1 diastolic dysfunction * Some edema 1+ bilateral lower extremities * Lasix PRN * Wean oxygen to maintain saturations >90% * Repeat CTA shows some atelectasis * IS * High resolution CT shows 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, mild pulm edema * Pulmonary consulted thank you for your help * Give one dose of Lasix 20mg PO (2) Dyspnea on exertion: Code(s): R06.09 - Other forms of dyspnea Status: Acute Assessment and Plan: * Continue supplemental oxygen * Wean to maintain saturation >90% * Trend SPO2 * Could be from fluid overload * Echo shows a grade 1 diastolic dysfunction * BNP elevated * trend urine output (3) Abdominal pain: Code(s): R10.9 - Unspecified abdominal pain Status: Acute Assessment and Plan: * CTA of the chest shows gallbladder wall thickening and is also seen on the repeat CTA from 01/05/22 * US of the GB showed normal gallbladder, did see multiple liver masses which could reflect metastatic disease * Common bile duct is dilated, MRCP ordered * Liver enzymes elevated at 107/63, going down * Could be related to the liver masses * [place] and morphine for pain control * Zofran for antiemetics * Added miralax and colace for constipation (4) Left sided sciatica: Code(s): M54.32 - Sciatica, left side Status: Acute Assessment and Plan: * Seems better controlled * Pain medications (5) COVID-19 virus infection: Code(s): U07.1 - COVID-19 Status: Acute Assessment and Plan: * Was positive November 23 * Was testing positive here, however is probably just reactive from recent infection * Trend respiratory status * No indication for isolation at this time (6) Transaminitis: Code(s): R74.01 - Elevation of levels of liver transaminase levels Status: Acute Assessment and Plan: * AST/ALT 79/46 Alk phos 176 * RUQ ultrasound Liver masses recommend MRCP * MRCP indicated liver metastasis with lesions * Hep panel negative * Trend labs (7) Liver masses: Code(s): R16.0 - Hepatomegaly, not elsewhere classified Status: Acute Assessment and Plan: * Probably the cause of the abdominal pain * Oncology consulted * MRCP is ordered should be able to assess more of the masses * She follows with Dr. Reddy at [facility] * Follow up with your oncologist outpatient * Appointment made with her Oncologist for 01/15/22 at 0915 (8) Thrombocytopenia: Code(s): D69.6 - Thrombocytopenia, unspecified Status: Acute Assessment and Plan: * PLT is kind of all over and currently at 50 * She did get one dose of lovenox in the ED * Hit Panel pending * Continue to trend labs * Hold anticoagulation for now * CTA does not show any PE * Venous doppler negative for DVT (9)
--- NOTE | 2022-01-07 09:15 | PM.IMPN ---
Progress Note: A&P Assessment and Plan (1) Acute respiratory failure with hypoxia: Code(s): J96.01 - Acute respiratory failure with hypoxia Status: Acute Assessment and Plan: Requiring supplemental oxygen of 1-1.5 Repeat chest xray shows no abnormalities ABG on Room air shows pH 7.475, CO2 25.4, pO2 41.7, HCPO3 18.3, Sat 81.8 Shortness of breath better with talking or exertion Could be related to fluid overload BNP is elevated Echo EF of 60-65% with grade 1 diastolic dysfunction Some edema 1+ bilateral lower extremities Lasix PRN Wean oxygen to maintain saturations >90% Repeat CTA shows some atelectasis IS High resolution CT shows 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, mild pulm edema Pulmonary consulted thank you for your help Give one dose of Lasix 20mg PO (2) Dyspnea on exertion: Code(s): R06.09 - Other forms of dyspnea Status: Acute Assessment and Plan: Continue supplemental oxygen Wean to maintain saturation >90% Trend SPO2 Could be from fluid overload Echo shows a grade 1 diastolic dysfunction BNP elevated trend urine output (3) Abdominal pain: Code(s): R10.9 - Unspecified abdominal pain Status: Acute Assessment and Plan: CTA of the chest shows gallbladder wall thickening and is also seen on the repeat CTA from 01/05/22 US of the GB showed normal gallbladder, did see multiple liver masses which could reflect metastatic disease Common bile duct is dilated, MRCP ordered Liver enzymes elevated at 107/63, going down Could be related to the liver masses [place] and morphine for pain control Zofran for antiemetics Added miralax and colace for constipation (4) Left sided sciatica: Code(s): M54.32 - Sciatica, left side Status: Acute Assessment and Plan: Seems better controlled Pain medications (5) COVID-19 virus infection: Code(s): U07.1 - COVID-19 Status: Acute Assessment and Plan: Was positive November 23 Was testing positive here, however is probably just reactive from recent infection Trend respiratory status No indication for isolation at this time (6) Transaminitis: Code(s): R74.01 - Elevation of levels of liver transaminase levels Status: Acute Assessment and Plan: AST/ALT 79/46 Alk phos 176 RUQ ultrasound Liver masses recommend MRCP MRCP indicated liver metastasis with lesions Hep panel negative Trend labs (7) Liver masses: Code(s): R16.0 - Hepatomegaly, not elsewhere classified Status: Acute Assessment and Plan: Probably the cause of the abdominal pain Oncology consulted MRCP is ordered should be able to assess more of the masses She follows with Dr. Reddy at [facility] Follow up with your oncologist outpatient Appointment made with her Oncologist for 01/15/22 at 0915 (8) Thrombocytopenia: Code(s): D69.6 - Thrombocytopenia, unspecified Status: Acute Assessment and Plan: PLT is kind of all over and currently at 50 She did get one dose of lovenox in the ED Hit Panel pending Continue to trend labs Hold anticoagulation for now CTA does not show any PE Venous doppler negative for DVT (9) History of breast cancer: Code(s): Z85.3 - Personal history of malignant neoplasm of breast Status: Acute Assessment and Plan: Patient had a mastectomy, radiation and chem Seems as if this has metasized See above (10) Nocturnal hypoxia: Code(s): G47.34 - Idiopathic sleep related nonobstructive alveolar hypoventilation Status: Acute Assessment and Plan: Apnea link performed (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
--- NOTE | 2022-01-07 10:04 | PM.CNPUL ---
Assessment and Plan Assessment and plan (1) Acute respiratory failure with hypoxia: Code(s): J96.01 - Acute respiratory failure with hypoxia Status: Acute Assessment and Plan: this 56-year-old female with history of left breast cancer status post mastectomy and chemoradiation with radiation completed in early June of 2021 presented with a shortness of breath and hypoxemia. Chest imaging studies including 2 [address]s showed no evidence of pulmonary embolism raises a question of a mild atelectasis. patient was found to have liver masses which raise.d the question of metastatic disease. Respiratory exam is unremarkable. The patient has significant oxyhemoglobin desaturation at night. Hypoxemia persists despite treatment with bronchodilators and incentive spirometry. Etiology of patient's hypoxemia is not quite clear. with the history of radiation to the left lung, early radiation fibrosis is in the differential diagnosis. Will get some high-resolution CT images regarding the infiltrates seen on chest CT. if these infiltrates are not related to atelectasis will consider bronchoscopy with BAL. case was discussed with the patient's hospitalist. (2) Thrombocytopenia: Code(s): D69.6 - Thrombocytopenia, unspecified Status: Acute (3) Dyspnea on exertion: Code(s): R06.09 - Other forms of dyspnea Status: Acute (4) Liver masses: Code(s): R16.0 - Hepatomegaly, not elsewhere classified Status: Acute (5) History of breast cancer: Code(s): Z85.3 - Personal history of malignant neoplasm of breast Status: Acute History of Present Illness History of Present Illness Consult date: 01/07/22 Chief complaint: covid infection,acute hypoxic respiratory failure, Narrative: This 56-year-old female with a history of breast cancer status post chemo radiation has had shortness of breath and hypoxemia. The patient stated that she started having shortness of breath approximately 2 weeks prior to her coming to the hospital. She had shortness of breath only with activities. The shortness of breath was not associated with other respiratory symptoms such as chest pain palpitations orthopnea cough wheezing hemoptysis night sweats fever chills or lower extremity edema. Approximately 2 weeks ago prior to this admission she had some sciatica pain and started taking Aleve. she stated that the shortness of breath started after she started taking the pain medicine. In addition to shortness of breath the patient also has right upper quadrant pain. patient was found to have hypoxemia and has been on supplemental oxygen since admission to the hospital. She has had 2 chest [address]s that raise a question of mild atelectasis. She had no evidence for PE. In addition she was found to have liver masses for which she underwent would sound guided biopsy. Pathology report pending as of today. patient has been on nebulized short-acting bronchodilators and also incentive spirometry. Her hypoxemia persists despite treatment with a bronchodilators. in addition she has been on oxycodone treatment for back pain. Apnea link study showed significant oxyhemoglobin desaturation at night. Patient was diagnosed with a breast cancer in 2020 and was treated with in a left mastectomy followed by chemoradiation. She completed chemotherapy in December of 2020. She had 30 sessions of radiation to her left breast that was completed in early June of 2021. Patient had COVID 19 infection in mid November of this year. Overall she had a mild illness characterized by upper respiratory system symptoms and fever for 2 days. She did not require hospitalization. Review of Systems Review of Systems: Patient reports no weight changes. She has had some history of nasal allergies but no history of asthma. She had no orthopnea. She has no history of acid reflux symptoms. She has had mild constipation since admitted to the hospital. She has no urinary
[2022-01-07] MEDS: oxyCODONE HCL (*CRX) 5 MG TAB IR PO ×2 (11:28→16:36)
[2022-01-07] MEDS: FUROSEMIDE 20 MG TABLET PO (12:52)
--- NOTE | 2022-01-07 14:38 | PCRCNOTE ---
O2 INCREASED TO 4LPM BOARD STATES WHILE SLEEPING FOR PT. TO TAKE A NAP. PT. INSTRUCTED TO CALL WHEN SHE WAKES UP SO SHE CAN BE PLACED BACK ON 2.5LPM BEFORE. Reynold NOTIFIED.
[2022-01-07] MEDS: CENTRAL LINE FLUSH 10 ML IV PUSH (16:39)
[2022-01-07] MEDS: predniSONE 20 MG TABLET 40 MG PO (17:05)
[2022-01-08] VITALS (12 sets, daily range): BP systolic 114–119; BP diastolic 79–90; PULSE 96–112; RESP 16–24; TEMP 36.3–36.7; O2SAT 87–94
[2022-01-08 06:09] LABS: Alanine Aminotransferase 51 U/L (6-35); Albumin Level 3.6 g/dL (3.5-5.1); Alkaline Phosphatase 204 U/L (38-126); Anion Gap 12 mmol/L (8-16); Aspartate Amino Transferase 96 U/L (14-36); Bilirubin,Total 1.6 mg/dL (0.2-1.3); Blood Urea Nitrogen 14 mg/dL (7-17); Calcium 9.1 mg/dL (8.4-10.2); Carbon Dioxide 25 mmol/L (22-30); Chloride 100 mmol/L (98-107); Estimated CRCL calculation 98 ml/min; Estimated Glomerular Filt Rate > 60; Glucose 144 mg/dL (65-110); Magnesium 2.3 mg/dL (1.6-2.3); Potassium 3.7 mmol/L (3.4-5.0); Sodium 137 mmol/L (137-145)
[2022-01-08 06:23] LABS: Basophils Percent Auto 0.2 % (0.2-1.2); Hemoglobin 12.2 g/dL (12.0-15.0); Immature Granulocyte Absolute 0.08 K/mm3 (0.00-0.031); Immature Granulocyte Percent A 1.4 % (0-0.5); Immature Platelet Fraction Pct 9.4 % (0.9-11.2); Lymphocytes Absolute Auto 0.45 K/mm3 (0.9-3.2); Lymphocytes Percent Auto 7.8 % (18.3-44.2); Mean Corpuscular HGB Conc 32.1 g/dl (32-36); Mean Corpuscular Hemoglobin 30.9 pg (26-34); Mean Corpuscular Volume 96.2 fl (80-100); Mean Platelet Volume 10.9 fl (7.4-10.4); Monocytes Absolute Auto 0.4 K/mm3 (0.1-0.6); Monocytes Percent Auto 6.2 % (2.6-8.5); Neutrophils Absolute Auto 4.9 K/mm3 (1.3-6.7); Neutrophils Percent Auto 84.4 % (45.5-73.1); Platelet Count Result 57 k/mm3 (150-375); Red Blood Count 3.95 M/mm3 (4.2-5.4); Red Cell Distribution Width 16.5 % (11.5-14.5); White Blood Count 5.8 K/mm3 (4.5-10.0)
[2022-01-08] MEDS: oxyCODONE HCL (*CRX) 5 MG TAB IR PO (08:19)
[2022-01-08] MEDS: DULoxetine HCL 30 MG CAPSULE.DR PO (08:20)
[2022-01-08] MEDS: LIDOCAINE 5% PATCH 1 PATCH TRANSDERM (08:20)
[2022-01-08] MEDS: predniSONE 20 MG TABLET 40 MG PO (08:20)
[2022-01-08] MEDS: FONDAPARINUX SODIUM 5 MG/0.4 ML SYRINGE SUB-Q (08:21)
[2022-01-08] MEDS: DOCUSATE SODIUM 100 MG CAPSULE PO (08:21)
[2022-01-08] MEDS: polyethylene glycoL 3350 17 GM POWD.PACK PO (08:21)
[2022-01-08] MEDS: FONDAPARINUX SODIUM 2.5 MG/0.5 ML SYRINGE SUB-Q (08:21)
[2022-01-08] MEDS: CENTRAL LINE FLUSH 10 ML IV PUSH (08:29)
--- NOTE | 2022-01-08 10:45 | PM.PNPUL ---
Progress Note: A&P Assessment and Plan (1) History of breast cancer: Code(s): Z85.3 - Personal history of malignant neoplasm of breast Status: Acute (2) Acute respiratory failure with hypoxia: Code(s): J96.01 - Acute respiratory failure with hypoxia Status: Acute Assessment and Plan: This 56-year-old female with history of breast cancer with liver masses which on biopsy were related to metastatic breast cancer has had shortness of breath on exertion and hypoxemia. A chest CT showed no evidence of parenchymal lung disease with exception of a small probable radiation fibrosis in the left upper lobe seen only on the high-resolution CT. She had no evidence of atelectasis on the last high-resolution CT. recent echocardiogram showed no evidence of elevated pulmonary artery systolic pressure. On the limited echo with bubble study she had no evidence of intracardiac shunt. etiology of hypoxemia remains unknown. The patient will need to be on home oxygen. We would like to evaluate the patient in the outpatient clinic in approximately 2 weeks will consider pulmonary function testing, possible sleep study. I would discontinue oral steroids. The case was discussed with patient's hospitalist. will sign off please call with any questions. (3) Thrombocytopenia: Code(s): D69.6 - Thrombocytopenia, unspecified Status: Acute Subjective Date/time seen: 01/08/22 10:45 Patient has no new respiratory symptoms. She remains on supplemental oxygen. Slept well last night. Review of Systems Review of Systems: All system review is negative except as noted in HPI and below Exam Narrative: GENERAL APPEARANCE: Well developed, well nourished, alert and cooperative, and appears to be in no acute distress SKIN: Inspection of the skin reveals no rashes, ulcerations or petechiae. HEENT: Sclerae anicteric and conjunctivae pink and moist. Extraocular movements were intact and pupils were equal, round, and reactive to light. The oral mucosa, hard and soft palate, tongue and posterior pharynx were normal. NECK: Supple. There was no thyroid enlargement, and no tenderness, or masses were felt. CHEST: Normal AP diameter and normal contour without any kyphoscoliosis. LUNGS: Auscultation of the lungs revealed normal breath sounds without any other adventitious sounds or rubs. CARDIAC: There was a regular rate and rhythm without any murmurs. ABDOMEN: Soft and nontender with normal bowel sounds. There was no organomegaly. LYMPH NODES: No lymphadenopathy was appreciated in the neck. EXTREMITIES: No cyanosis, clubbing or edema. NEUROLOGIC: Alert and oriented x 3. Normal affect. Objective Data Vital Signs Vital Signs: Vital Signs - 24 hr 01/07/22 14:23 01/07/22 14:34 01/07/22 14:00 Temperature 37.2 C Pulse Rate 93 96 104 H Respiratory Rate 16 16 24 H Blood Pressure 113/68 Pulse Oximetry 90 Oxygen Delivery Oxygen Flow Rate 01/07/22 21:16 01/07/22 21:17 01/07/22 20:00 Temperature Pulse Rate 101 H Respiratory Rate 16 Blood Pressure Pulse Oximetry 91 91 Oxygen Delivery Nasal Cannula Nasal Cannula Oxygen Flow Rate 3 2.5 01/07/22 22:00 01/08/22 03:11 01/07/22 21:28 Temperature 35.6 C L Pulse Rate 85 100 99 Respiratory Rate 19 16 16 Blood Pressure 108/69 Pulse Oximetry 100 Oxygen Delivery Oxygen Flow Rate 01/08/22 03:19 01/08/22 06:00 01/08/22 07:58 Temperature 36.7 C Pulse Rate 104 H 96 112 H Respiratory Rate 16 18 18 Blood Pressure 114/79 Pulse Oximetry 94 Oxygen Delivery Oxygen Flow Rate 01/08/22 07:59 Temperature Pulse Rate 112 H Respiratory Rate 18 Blood Pressure Pulse Oximetry 92 Oxygen Delivery Nasal Cannula Oxygen Flow Rate 2.5 Intake/Output Intake/Output: Intake & Output 01/05/22 01/06/22 01/07/22 01/08/22 23:59 23:59 23:59 23:59 Intake Total 2650 920 1460 Output Total 1900 1000 2600 Balance 095 -06 -9677
--- NOTE | 2022-01-08 11:15 | P.DS_ITS ---
DS: Admitting Diagnosis Discharge Date 01/08/22 1115 Admitting Diagnosis liver masses, acute hypoxemia DS: Discharge Diagnosis Discharge Diagnosis (1) Acute respiratory failure with hypoxia: Code(s): J96.01 - Acute respiratory failure with hypoxia Status: Acute Assessment and Plan: * Requiring supplemental oxygen of 2.5 liters, continuing * Repeat chest xray no abnormailities * ABG on Room air shows pH 7.475, CO2 25.4, pO2 41.7, HCPO3 18.3, Sat 81.8 * Shortness of breath with exertion or talking * Could be related to fluid overload * BNP is elevated * Echo EF of 60-65% with grade 1 diastolic dysfunction * Some edema 1+ bilateral lower extremities * Lasix PRN * Wean oxygen to maintain saturations >90% * Repeat CTA shows some atelectasis * IS * High resolution CT shows 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, mild pulm edema * Pulmonary consulted thank you for your help * Give one dose of Lasix 20mg PO on 01/07 * possible hepatopulmonary syndrome (2) Dyspnea on exertion: Code(s): R06.09 - Other forms of dyspnea Status: Acute Assessment and Plan: * Seems closer to a fluid overload state * Continue supplemental oxygen * Wean to maintain saturation >90% * Trend SPO2 * Could be from fluid overload * Echo shows a grade 1 diastolic dysfunction * BNP elevated * trend urine output (3) Abdominal pain: Code(s): R10.9 - Unspecified abdominal pain Status: Acute Assessment and Plan: * CTA of the chest shows gallbladder wall thickening * US of the GB showed normal gallbladder, did see multiple liver masses which could reflect metastatic disease * Common bile duct is dilated, MRCP ordered * Liver enzymes elevated at 96/51, alk phos 204, Bili 1.6 * Consider GI * Could be related to the liver masses * [place] and morphine for pain control * Zofran for antiemetics * Added miralax and colace for constipation * BM noted on 01/07/22 (4) Left sided sciatica: Code(s): M54.32 - Sciatica, left side Status: Acute Assessment and Plan: * Seems better controlled * Pain medications (5) COVID-19 virus infection: Code(s): U07.1 - COVID-19 Status: Acute Assessment and Plan: * Was positive November 23 * Was testing positive here, however is probably just reactive from recent infection * Trend respiratory status * No indication for isolation at this time (6) Transaminitis: Code(s): R74.01 - Elevation of levels of liver transaminase levels Status: Acute Assessment and Plan: * AST/ALT 96/51 Alk phos 204 * RUQ ultrasound Liver masses recommend MRCP * MRCP indicated liver metastasis with lesions * Hep panel negative * Trend labs (7) Liver masses: Code(s): R16.0 - Hepatomegaly, not elsewhere classified Status: Acute Assessment and Plan: * Probably the cause of the abdominal pain * Oncology consulted * MRCP is ordered should be able to assess more of the masses * She follows with Dr. Reddy at [facility] * Follow up with your oncologist outpatient * Appointment made with her Oncologist for 01/15/22 at 0915 * Pathology report does indicate cancer metastasis from the breast (8) Thrombocytopenia: Code(s): D69.6 - Thrombocytopenia, unspecified Status: Acute Ass
--- NOTE | 2022-01-08 11:15 | PM.DS ---
DS: Admitting Diagnosis Discharge Date 01/08/22 1115 Admitting Diagnosis liver masses, acute hypoxemia DS: Discharge Diagnosis Discharge Diagnosis (1) Acute respiratory failure with hypoxia: Code(s): J96.01 - Acute respiratory failure with hypoxia Status: Acute Assessment and Plan: Requiring supplemental oxygen of 2.5 liters, continuing Repeat chest xray no abnormailities ABG on Room air shows pH 7.475, CO2 25.4, pO2 41.7, HCPO3 18.3, Sat 81.8 Shortness of breath with exertion or talking Could be related to fluid overload BNP is elevated Echo EF of 60-65% with grade 1 diastolic dysfunction Some edema 1+ bilateral lower extremities Lasix PRN Wean oxygen to maintain saturations >90% Repeat CTA shows some atelectasis IS High resolution CT shows 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, mild pulm edema Pulmonary consulted thank you for your help Give one dose of Lasix 20mg PO on 01/07 possible hepatopulmonary syndrome (2) Dyspnea on exertion: Code(s): R06.09 - Other forms of dyspnea Status: Acute Assessment and Plan: Seems closer to a fluid overload state Continue supplemental oxygen Wean to maintain saturation >90% Trend SPO2 Could be from fluid overload Echo shows a grade 1 diastolic dysfunction BNP elevated trend urine output (3) Abdominal pain: Code(s): R10.9 - Unspecified abdominal pain Status: Acute Assessment and Plan: CTA of the chest shows gallbladder wall thickening US of the GB showed normal gallbladder, did see multiple liver masses which could reflect metastatic disease Common bile duct is dilated, MRCP ordered Liver enzymes elevated at 96/51, alk phos 204, Bili 1.6 Consider GI Could be related to the liver masses [place] and morphine for pain control Zofran for antiemetics Added miralax and colace for constipation BM noted on 01/07/22 (4) Left sided sciatica: Code(s): M54.32 - Sciatica, left side Status: Acute Assessment and Plan: Seems better controlled Pain medications (5) COVID-19 virus infection: Code(s): U07.1 - COVID-19 Status: Acute Assessment and Plan: Was positive November 23 Was testing positive here, however is probably just reactive from recent infection Trend respiratory status No indication for isolation at this time (6) Transaminitis: Code(s): R74.01 - Elevation of levels of liver transaminase levels Status: Acute Assessment and Plan: AST/ALT 96/51 Alk phos 204 RUQ ultrasound Liver masses recommend MRCP MRCP indicated liver metastasis with lesions Hep panel negative Trend labs (7) Liver masses: Code(s): R16.0 - Hepatomegaly, not elsewhere classified Status: Acute Assessment and Plan: Probably the cause of the abdominal pain Oncology consulted MRCP is ordered should be able to assess more of the masses She follows with Dr. 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 (8) Thrombocytopenia: Code(s): D69.6 - Thrombocytopenia, unspecified Status: Acute Assessment and Plan: PLT is kind of all over and currently at 58 She did get one dose of lovenox in the ED Hit Panel pending Continue to trend labs Hold anticoagulation for now CTA does not show any PE Venous doppler negative for DVT (9) History of breast cancer: Code(s): Z85.3 - Personal history of malignant neoplasm of breast Status: Acute Assessment and Plan: Patient had a mastectomy, radiation and chem Seems as if this has metasized See above (10) Nocturnal hypoxia: Code(s): G47.34 - Idiopathic sleep related nonobstructive alveolar hypoventi
--- NOTE | 2022-01-08 15:46 | HOMEO2EVAL ---
Evaluation was performed at [facility] Home Oxygen Evaluation RC: Home Oxygen (O2) Evaluation Start: 01/08/22 10:36 Freq: ONCE Status: Active Protocol: RPE Activity Type Activity Date Activity User E-sign Co-sign Detail Recorded Client Recorded Date Recorded By Document 01/08/22 15:00 RABIA [email or web address] 01/08/22 15:42 RABIA Document 01/08/22 15:02 RABIA [email or web address] 01/08/22 15:42 RABIA Document 01/08/22 15:03 RABIA [email or web address] 01/08/22 15:42 RABIA Document 01/08/22 15:04 RABIA [email or web address] 01/08/22 15:42 RABIA Document 01/08/22 15:05 RABIA [email or web address] 01/08/22 15:42 RABIA 01/08/22 01/08/22 01/08/22 15:00 15:02 15:03 Home O2 Evaluation Test Phase Resting Resting Resting Oxygen Delivery Room Air High Flow Nasal High Flow Nasal Cannula Cannula Oxygen Flow Rate (L/min) 1 3 Pulse Oximetry (90-100 %) 87 L 87 L 90 Pulse Rate (60-100 beats/min) 106 H Treatment Charges O2 Evaluation - Inpatient 01/08/22 01/08/22 15:04 15:05 Home O2 Evaluation Test Phase Exercise Exercise Oxygen Delivery High Flow Nasal High Flow Nasal Cannula Cannula Oxygen Flow Rate (L/min) 4 6 Pulse Oximetry (90-100 %) 89 L Pulse Rate (60-100 beats/min) Treatment Charges
--- NOTE | 2022-01-08 16:14 | PCRCNOTE ---
pt set up with [employer] [place], 3l restm 4l sleep, 6-8l exertion. high flow cannula
[2022-01-08] MEDS: HEPARIN SODIUM LOCK FLUSH 500 UNITS/5 ML SYRINGE IV PUSH (17:06)
[2022-01-08 23:25] LABS: Heparin Induced Platelet Antib Negative (Negative)
[2022-01-09 20:13] LABS: CA 15-3 47 U/mL (<32)
== END 2022-01-08 18:10 | disposition home health service (06) | DRG 189 ==
LOC: ANHED 13:56 → ANH3MEDSUR 16:39
PROVIDERS: Internal Medicine Hematology & Oncology; Preventive Medicine Aerospace Medicine; Admitting Provider Chiropractor; Emergency Provider Emergency Medicine; PCP Family Medicine; Visit Provider Nurse Practitioner
DX: J96.01 Acute respiratory failure with hypoxia (principal); J70.1 Chronic and other pulmonary manifestations due to radiation; C78.7 Secondary malignant neoplasm of liver and intrahepatic bile duct; R73.03 Prediabetes; D69.6 Thrombocytopenia, unspecified; M54.32 Sciatica, left side; G47.34 Idiopathic sleep related nonobstructive alveolar hypoventilation; Z85.3 Personal history of malignant neoplasm of breast; Z86.010 Personal history of colon polyps; Z90.12 Acquired absence of left breast and nipple; Z86.16 Personal history of COVID-19
CPT/HCPCS: 36415; 36600; 47000; 71045; 71046; 71250; 71275; 74183; 76376; 76705; 76942; 80053; 80074; 81001; 82375; 82805; 83036; 83050; 83690; 83735; 83880; 84484; 85025; 85055; 85380; 85610; 85730; 86022; 86300; 88307; 88360; 93005; 93306; 93308; 93970; 94618; 94640; 94762; 96372; 96375; 99291; A9270; A9577; C9803; J1170; J1650; J1652; J1940; J2270; J3360; J7030; J7050; J7512; Q9967; U0003; U0005